=== PATIENT | female | born 1990 | race Caucasian/White ===

== ENCOUNTER 2020-11-20 13:54 | Emergency (ER) | payer SELFPAY ==
[2020-11-20 14:00] VITALS: BP 143/86; PULSE 108; RESP 20; TEMP 37.6; O2SAT 96; BMI 51.7
--- NOTE | 2020-11-20 14:25 | HMH.EDUTC ---
[facility] Disposition Clinical Impression: Multiple complaints Disposition: Home, Self-Care Condition on Discharge: Good Instructions: Hernias: Causes and Treatment Options, DI for Anxiety -- Adult Additional Instructions: Watch for protrusion of area on your abdomen if you noticed lump or hernia like area in your abdomen follow up with your Family Doctor You was given list of accepting Providers, call the clinics and check to see which one accepts your insurance and is accepting new patients Follow up with Aysha Ford Call office and make appointment she had me start you on a medication to help with your anxiety Return if needed Straight to ER if any life threatening symptoms Prescriptions: Sertraline HCl [Zoloft 50mg tablet] 50 mg PO DAILY 30 Days #30 tab Transmission Status: Received by [employer] #[id number] Referrals: Provider,Referral, MD [Primary Care Provider] - As needed Aysha Ford, INCINERATOR ATTENDANT [Nurse Practitioner] - Time of Disposition: 14:54 Medical Decision Making - Nima Inquiry Pt receiving controlled substance: No Nima was queried for this patient: No Vital Signs: 11/20/20 14:00 11/20/20 14:45 11/20/20 14:54 Temperature 99.7 F H 98.3 F 98.3 F Temperature Source Temporal Artery Scan Temporal Artery Scan Pulse Rate 89 Pulse Rate [Left Brachial] 108 H 89 Respiratory Rate 20 22 22 Blood Pressure 152/81 H Blood Pressure [Left Arm] 143/86 H 152/81 H Blood Pressure Mean [Left Arm] 105 104 Blood Pressure Source [Left Arm] Automatic Cuff Automatic Cuff Blood Pressure Position [Left Arm] Sitting Sitting 02 Sat by Pulse Oximetry 96 97 Oxygen Delivery Method Room Air Room Air - Physician Consults Physician Consulted: Aysha Ford Time: 14:50 Reason -: Other (Behavioral Health) Comment/Response: Spoke with Aysha Ford Behavioral [facility] and she advised to go ahead and start patient on Zoloft and have her call for appointment and she will see her in the office and change or adjust medicaiton as needed Medical Decision Narrative: Patient states that it was recommended that she come here to get established with PCP and get referrals to where she needed to go. Discussed with patient that [facility] could not be PCP and was given application for insurance and the need for her to establish a PCP to follow up and further testing if needed, At this time do not feel palpable mass or hernia however just because none is felt at this time it could have retracted and recommended follow up for further testing and evaluation and patient agreed Discussed that we could transfer her to the ED for CT or do ultrasound to see if we see anything and patient declined at this time. Patient states that she did not have PCP and wanted a list of accepting doctors Patient also given card for Aysha Ford for evaluation and treatment of her anxiety disorder Spoke with Aysha Ford and she had me start patient on Zoloft 50mg daily and have her call the office for appointment [facility] HPI - General Stated complaint: poss hernia Time Seen by Provider: 11/20/20 14:32 Mode of Arrival: Ambulatory Source of Information: Patient Limitations: No Limitations Description of Symptoms (Recalled from Triage Doc. by RN): PATIENT C/O DISCOMFORT AROUND UMBILICAL AREA X 2 WEEKS, POSSIBLE HERNIA HEENT Symptoms (Recalled from RN notes): No Resp Symptoms (Recalled from RN notes): No Skin Symptoms (Recalled from RN notes): No MS Symptoms (Recalled from RN notes): No Functional Status (Recalled from RN notes): WNL - History of Present Illness Provider Complaint: Patient states that she gets anxious when she comes to the doctor States that about two weeks ago she was lifting something and felt a burning sensation around her navel area States that it stopped but she felt of it felt like she had a spot there like a seperation in the muscle or something and someone said it may be a hernia States that she has not had anything protruding through it a
[2020-11-20 14:45] VITALS: BP 152/81; PULSE 89; RESP 22; TEMP 36.8; O2SAT 97
[2020-11-20 14:54] VITALS: BP 152/81; PULSE 89; RESP 22; TEMP 36.8; O2SAT 97
== END 2020-11-20 14:58 | disposition home or self-care (01) ==
PROVIDERS: Emergency Provider Nurse Practitioner
DX: R10.33 Periumbilical pain (principal); F41.9 Anxiety disorder, unspecified; Z79.899 Other long term (current) drug therapy
CPT/HCPCS: 99202; G0463

== ENCOUNTER → 2020-12-25 12:58 | Outpatient (CLI) | payer OTHER, SELFPAY ==
[2020-12-25 13:17] LABS: Basophils # 0.1 K/mm3 (0-0.2); Basophils % 0.7 % (0.1-2.0); Eosinophils # 0.3 K/mm3 (0.0-0.4); Hemoglobin 14.5 g/dL (12.2-16.2); Lymphocytes # 3.4 K/mm3 (0.7-4.5); Mean Corpuscular HGB Conc 33.8 g/dL (31.8-35.4); Mean Corpuscular Hemoglobin 29.7 pg (27.0-31.2); Mean Corpuscular Volume 88.1 fl (81-99); Monocytes # 0.4 K/mm3 (0.1-1.0); Monocytes % 3.4 % (1.7-9.3); Neutrophils # 7.2 K/mm3 (1.8-7.8); Platelet Count 291 K/mm3 (142-424); Red Blood Count 4.88 M/mm3 (4.20-5.40); Red Cell Distribution Width 13.9 % (11.5-17.5); White Blood Count 11.4 K/mm3 (4.8-10.8)
[2020-12-25 13:53] LABS: Alanine Aminotransferase 20 U/L (12-78); Albumin Level 4.1 g/dl (3.5-5.0); Albumin/Globulin Ratio 1.6 (1.1-1.8); Alkaline Phosphatase 87 U/L (38-126); Anion Gap 11.1 mEq/L (5-15); Aspartate Amino Transferase 22 U/L (14-36); Bilirubin,Total 0.5 mg/dl (0.2-1.3); Blood Urea Nitrogen 5 mg/dl (7-17); Calcium 8.8 mg/dl (8.4-10.2); Carbon Dioxide 29 mmol/L (22.0-30.0); Chloride 102 mmol/L (98-107); Chol/HDL Ratio 5.7 (1-3.5); Cholesterol 176 mg/dl (140-200); Estimated Glomerular Filt Rate 145 ml/min (>60); GFR (African American) 175 ML/MIN (>60); Globulin 2.6 g/dL (1.3-3.2); Glucose 101 mg/dl (74-100); HDL Cholesterol 31 mg/dl (40-60); Potassium 4.1 mmoL/L (3.5-5.1); Sodium 138 mmol/L (136-145); Total Protein,Serum 6.7 g/dl (6.3-8.2); Triglycerides 187 mg/dl (30-150); VLDL Cholesterol 37 mg/dL (0-40)
[2020-12-25 14:04] LABS: Direct LDL Cholesterol 111.18 mg/dL (100-129)
[2020-12-25 14:24] LABS: Thyroid Stimulating Hormone 1.62 uIU/mL (0.465-4.68)
== END ==
PROVIDERS: Visit Provider Family Medicine
DX: F41.8 Other specified anxiety disorders (principal); Z68.43 Body mass index [BMI] 50.0-59.9, adult
CPT/HCPCS: 36415; 80053; 80061; 84443; 85025

== ENCOUNTER 2023-12-05 15:33 | Outpatient (CLI) | payer OTHER, SELFPAY ==
--- NOTE | 2023-12-05 15:40 | XR_ITS ---
FINAL REPORT CLINICAL HISTORY: LT SIDE LOW BACK PAIN FINDINGS: 5 views of the lumbar spine were obtained. There is no evidence of fracture or dislocation. The vertebral alignment is normal. Disc spaces are preserved. No paraspinous soft tissue abnormalities identified. IMPRESSION: No acute bony abnormality. Reviewed, Interpreted and Dictated by Edgar Gusman III, MD Transcribed by Sayra Lopez Authenticated and [facility]
== END 2023-12-05 23:59 | disposition home or self-care (01) ==
LOC: RAD 15:35
PROVIDERS: PCP Family Medicine; Visit Provider Family Medicine
DX: M54.42 Lumbago with sciatica, left side (principal)
CPT/HCPCS: 72110

== ENCOUNTER 2023-12-12 15:02 | Outpatient (CLI) | payer OTHER, SELFPAY ==
--- NOTE | 2023-12-12 15:07 | MM_ITS ---
PROCEDURE INFORMATION: Exam: US Left Breast, Complete MG Left Diagnostic Breast Tomosynthesis Exam date and time: 12/12/2023 3:04 PM Age: 33 years old Clinical indication: Left breast pain TECHNIQUE: Imaging protocol: Complete ultrasound of all four quadrants of the left breast and the retroareolar regions, including ultrasound of the axilla when performed. Left Diagnostic tomosynthesis and 2D mammography including computer-aided detection (CAD) when performed. Unilateral or bilateral exam. COMPARISON: No relevant prior studies available. FINDINGS: MAMMOGRAPHY: Breast composition: There are scattered areas of fibroglandular density. Breast mammogram findings: There is a 1.3 cm circumscribed lobulated mass in the 12 o'clock left breast approximately 13 cm from the left nipple. No associated architectural distortion or suspicious calcifications Otherwise, no mass, distortion or suspicious calcifications are present throughout the left breast No axillary adenopathy ULTRASOUND: Breast ultrasound findings: 4 quadrant and retroareolar left breast ultrasound and left axilla ultrasound Only normal glandular structures are present in the regions assessed No suspicious solid or cystic mass is present. No benign-appearing solid or cystic mass is present. No architectural distortion or shadowing is present. No axillary adenopathy is present. IMPRESSION: Repeat targeted ultrasound is recommended to further characterize a 1.3 cm lobulated mass along the 12 o'clock left breast 13 cm from the nipple. ASSESSMENT: BI-RADS 0, incomplete, needs additional imaging evaluation
[2023-12-12 17:59] LABS: Chloride 105 mmol/L (98-107); Potassium 4.4 mmoL/L (3.5-5.1); Sodium 137 mmol/L (136-145)
[2023-12-12 18:02] LABS: Alanine Aminotransferase 17 U/L (12-78); Albumin/Globulin Ratio 1.5 (1.1-1.8); Alkaline Phosphatase 86 U/L (38-126); Anion Gap 10.4 mEq/L (5-15); Aspartate Amino Transferase 23 U/L (14-36); Bilirubin,Total 0.2 mg/dl (0.2-1.3); Blood Urea Nitrogen 12 mg/dl (7-17); Carbon Dioxide 26 mmol/L (22.0-30.0); Cholesterol 168 mg/dl (140-200); Estimated Glomerular Filt Rate 115 ml/min (>60); GFR (African American) 139 ML/MIN (>60); Globulin 2.7 g/dL (1.3-3.2); Total Protein,Serum 6.7 g/dl (6.3-8.2); Triglycerides 259 mg/dl (30-150); VLDL Cholesterol 52 mg/dL (0-40)
[2023-12-12 18:03] LABS: Calcium 9.3 mg/dl (8.4-10.2); Chol/HDL Ratio 5.6 (1-3.5); Glucose 96 mg/dl (74-100); HDL Cholesterol 30 mg/dl (40-60)
[2023-12-12 18:16] LABS: Direct LDL Cholesterol 95.38 mg/dL (100-129)
[2023-12-12 18:17] LABS: Thyroid Stimulating Hormone 1.72 uIU/mL (0.465-4.68)
== END 2023-12-12 23:59 | disposition home or self-care (01) ==
PROVIDERS: PCP Family Medicine; Visit Provider Family Medicine
DX: N64.4 Mastodynia (principal); E66.01 Morbid (severe) obesity due to excess calories; Z68.43 Body mass index [BMI] 50.0-59.9, adult
CPT/HCPCS: 36415; 76641; 77061; 77065; 80053; 80061; 83036; 84443; G0279

== ENCOUNTER 2023-12-15 12:47 | Outpatient (CLI) | payer OTHER, SELFPAY ==
[2023-12-15 14:15] VITALS: BMI 52.9
== END 2023-12-15 23:59 | disposition home or self-care (01) ==
LOC: DIETICIAN 12:47
PROVIDERS: PCP Nurse Practitioner Family; Visit Provider Family Medicine
DX: E66.01 Morbid (severe) obesity due to excess calories (principal); Z68.43 Body mass index [BMI] 50.0-59.9, adult
CPT/HCPCS: 97802

== ENCOUNTER 2023-12-30 14:46 | Outpatient (CLI) | payer OTHER, SELFPAY ==
--- NOTE | 2023-12-30 14:46 | MR_ITS ---
FINAL REPORT TECHNIQUE: Multiplanar MR without contrast CLINICAL HISTORY: LBP with left sciatica FINDINGS: Sagittal images show normal vertebral height. Alignment is normal. Marrow signal pattern is unremarkable. L1-2: Unremarkable L2-3: Unremarkable L3-4: Unremarkable L4-5: Unremarkable L5-S1: Unremarkable IMPRESSION: Unremarkable exam Reviewed, Interpreted and Dictated by Katy Ingram MD Transcribed by Jojo Carter Authenticated and [facility]
== END 2023-12-30 23:59 | disposition home or self-care (01) ==
LOC: RAD 14:46
PROVIDERS: PCP Nurse Practitioner Family; Visit Provider Nurse Practitioner Family
DX: M54.42 Lumbago with sciatica, left side (principal)
CPT/HCPCS: 72148

== ENCOUNTER 2024-02-15 13:08 | Outpatient (CLI) | payer SELFPAY ==
[2024-02-15 14:53] LABS: HCG,Quantitative 38880 mIU/ml (0-5.42)
[2024-02-17 09:10] LABS: Progesterone 14.1 ng/mL (.)
== END 2024-02-15 23:59 | disposition home or self-care (01) ==
LOC: LAB 13:09
PROVIDERS: PCP Nurse Practitioner Family; Visit Provider Obstetrics & Gynecology
DX: N92.6 Irregular menstruation, unspecified (principal)
CPT/HCPCS: 36415; 84144; 84702

== ENCOUNTER 2024-04-18 11:40 | Outpatient (CLI) | payer SELFPAY | END 2024-04-18 23:59 | disposition home or self-care (01) | LOC: LAB.DROPOF 04-19 10:09 | PROVIDERS: PCP Obstetrics & Gynecology; Visit Provider Obstetrics & Gynecology | DX: Z34.90 Encounter for supervision of normal pregnancy, unspecified, unspecified trimester (principal) | CPT/HCPCS: 87086 ==

== ENCOUNTER 2024-05-18 13:21 | Emergency (ER) | payer OTHER, SELFPAY ==
[2024-05-18 14:15] VITALS: BP 136/78; PULSE 84; RESP 19; TEMP 36.9; O2SAT 96; BMI 59.3
--- NOTE | 2024-05-18 14:15 | ED_ITS ---
Discharge Plan Disposition Patient Disposition: Home, Self-Care Condition: Good Prescriptions Prescriptions: New azithromycin [Zithromax] 250 mg tablet 250 mg PO UD DOSE PK Qty: 6 0RF Rx Instructions: Take two (2) tablets today, then one (1) tablet days #2 thru #5 No Action Classic 28 mg iron- 800 mcg tablet 1 tab PO DAILY Referrals Follow up/Referrals: Anette Norman APRN [Primary Care Provider] - See instructions Activity Restrictions/Add. Instructions Additional Instructions/Restrictions: Drink plenty of fluids. Take tylenol for pain or fever. Take the medications as directed. Follow up with your regular doctor. Follow up with your merchandise associate physician. GO TO THE ER FOR ANY WORSENING SYMPTOMS Clinical Impressions Clinical Impression: Sinusitis, Stand Alone Forms Stand Alone Forms: Work/School Release Instructions Patient Instructions: DI for Sinusitis Print Language Print Language: Bengali Discharge ED Provider: Kike Henderson [facility] [place] General Stated complaint: sore throat, sinus pressure Time Seen by Provider: 05/18/24 14:15 Related Data Home Medications ?Medication ?Instructions ?Recorded ?Confirmed vits no.126-ferrous fum 1 tab PO DAILY 02/22/24 05/18/24 28 mg iron-folic acid 800 mcg tablet (Classic ) Previous Rx's ?Medication ?Instructions ?Recorded azithromycin 250 mg tablet 250 mg PO UD DOSE PK #6 tabs 05/18/24 (Zithromax) Allergies Allergy/AdvReac Type Severity Reaction Status Date / Time No Known Allergies Allergy Verified 04/18/24 11:10 [facility] Disclaimer: The information contained in this section may have been updated after the patient was seen, as this information can be updated by other users. Medical History (Updated 05/18/24 @ 14:50 by Kike Henderson APRN) Tobacco use affecting , antepartum Maternal obesity affecting , antepartum History of anxiety Surgical History Hx laparoscopic cholecystectomy Family History Other Cancer Social History Smoking Status: Current every day smoker alcohol intake: never substance use type: former substance user current occupational status: employed and other Travel in the last 8 weeks: None number of children: 0 ROS Obtained: Yes All systems reviewed & no additional complaints except as documented Constitutional Constitutional: Reports poor appetite Eyes Eyes: Reports system reviewed and no additional complaints, except as documented ENT Ears, Nose, Mouth, and Throat: Reports as per HPI Cardiovascular Cardiovascular: Reports system reviewed and no additional complaints, except as documented and Denies chest pain Respiratory Respiratory: Denies shortness of breath, Denies chest congestion, Reports cough, Denies stridor and Denies wheezing Gastrointestinal Gastrointestingal: Reports system reviewed and no additional complaints, except as documented; Denies abdominal pain, diarrhea or vomiting Musculoskeletal Musculoskeletal: Reports system reviewed and no additional complaints, except as documented and Denies arthralgias Integumentary/Breasts Skin/Breast: Reports system reviewed and no additional complaints, except as documented and Denies rash Neurologic Neurologic: Denies paresthesias Allergic/Immunologic Allergic/Immunologic: Denies wheezing Physical Exam General General appearance: alert and in no apparent distress Eye Eye exam: Present normal appearance, PERRL and EOMI ENT ENT exam: Present mucous membranes moist and normal external ear exam Expanded ENT Exam External ear exam: Present normal external inspection TM/Canal exam: Bilateral TM: erythema and bulging Nose exam: Absent sinus tenderness Nasal speculum exam: Bilateral: normal Mouth exam: Present normal external inspection; Absent drooling Teeth exam: Present normal inspection Throat exam: Present tonsillar erythema and tonsillomegaly Neck Neck exam: Present normal inspection, full ROM and trachea midline; Absent tenderness, lymphadenopathy or thyromegaly Chest Chest inspection: Present normal inspection and symmetric chest wall rise; Absent tenderness or rash Respiratory Respiratory exam: Present normal lung sounds bilaterally; Absent respiratory distress, wheezes, stridor or accessory muscle use Cardiovascular Cardiovascular exam: Present regular rate, normal rhythm and normal heart sounds Abdominal Exam Abdominal exam: Present soft; Absent distention, tenderness, guarding, rebound or rigidity Extremities Exam Extremities exam: Present normal inspection, full ROM and normal capillary refill; Absent tenderness or calf tenderness Back Exam Back exam: Present normal inspection and full ROM; Absent tenderness Neurological Exam Neurological exam: Present alert and oriented X3 Psychiatric Psychiatric exam: Present normal affect and normal mood Skin Skin exam: Present warm, dry, intact and normal color Lymphatic Lymphatic Findings: no adenopathy Medical Decision Making Medical Records Medical records reviewed: No I reviewed the patient's medical records. Screening: Per USPSTF and CDC recommendations, given the prevalence of disease in our region, it is our hospital?s policy to screen for HIV and viral Hepatitis for all patients aged 18 and over and those with ongoing risk factors. Nima Inquiry Pt receiving controlled substance: No Lab Data Lab results reviewed: Yes I reviewed the patient's lab results. Orders (Tests/Meds): ORDERS Category Date Time Status Covid-19 Nasal PCR ([facility]) Routine Lab 05/18/24 14:10 Ordered
[2024-05-18 14:52] VITALS: BP 136/78; PULSE 84; RESP 19; TEMP 36.9; O2SAT 96
== END 2024-05-18 14:54 | disposition home or self-care (01) ==
PROVIDERS: Emergency Provider Nurse Practitioner Family; PCP Nurse Practitioner Family
DX: O99.519 Diseases of the respiratory system complicating pregnancy, unspecified trimester (principal); J01.90 Acute sinusitis, unspecified; Z3A.00 Weeks of gestation of pregnancy not specified
CPT/HCPCS: 87635; 99213; G0381

== ENCOUNTER 2024-05-24 09:03 | Outpatient (CLI) | payer OTHER, SELFPAY ==
--- NOTE | 2024-05-24 09:09 | US_ITS ---
PROCEDURE: US OB /MATERNAL DETAIL CLINICAL INDICATION: 20 wk + Anatomy Scan COMPARISON: No exams were available for comparison FINDINGS: Transabdominal sonographic images of the pelvis were obtained. From her established due date she is 21 weeks 4 days. Single viable intrauterine gestation. Cephalic position. Placenta: Posteriorplacenta grade 1 . There is an average amount of fluid. The cervix appears satisfactory. Closed and measuring 6.4 cm in length. Complete survey performed and was unremarkable on the submitted images as in PACS. No discrete anomalies identified on survey imaging by technologist. Active fetus. Three-vessel cord with satisfactory umbilical cord insertion. 4- chamber heart noted. Situs, aortic arch, LVOT, RVOT, three-vessel view appear normal. Survey of brain & ventricles Unremarkable. Cerebellum, thalamus, choroid plexus, cisterna magna appear normal. Face and neck survey unremarkable. Profile, nasion, lips and nose appeared normal. Diaphragm and chest views unremarkable. Abdomen: Both kidneys noted and there is bilateral mild renal pelvis dilation.. Stomach and bladder noted and satisfactory. There is bilateral renal pelvis dilation measuring 4.8 mm and 6.2 mm. Spine: Survey of the spine satisfactory with no anomalies identified nor imaged. Cervical, thoracic, lower spine appear normal. Both arms and legs noted. Amniotic Fluid: Adequate. MVP 5.23 cm Measurements: Average ultrasound age 21weeks 5days. Estimated due date by ultrasound age 0309/29/2024. Estimated weight 431g BPD = 21weeks 6days HC = 21weeks 5days AC = 21weeks 6days FL = 21weeks 2days Growth Percentile= 41 Heart Rate = 152bpm Cerebellum = 21weeks 1day Humerus = 22weeks HC/AC is 1.16 FL/BPD is 0.68 FL/AC is 0.21 IMPRESSION: 1. Viable fetus in the cephalic presentation with a posterior placenta grade 1. 2. The fluid is within normal limits MVP 5.23 cm. 3. Anatomical scan appears normal. Difficult exam secondary to maternal obesity. 4. There is bilateral mild renal pelvis dilation measuring 4.8 mm and 6.2 mm. 5. Heart and spine views appear normal but were incomplete due to position. Suggest repeat scan at 24 weeks to look at the anatomy. Suggest repeat scan at 28 weeks to look at renal pelvis. 6. biometry is consistent with the dates. Dictated by: Ramy Heredia MD 05/24/2024 11:49 Ramy Heredia MD in [place] 05/24/2024 11:49
[2024-05-24 11:26] LABS: Basophils # 0.1 K/mm3 (0-0.2); Basophils % 0.6 % (0.1-2.0); Eosinophils # 0.1 K/mm3 (0.0-0.4); Eosinophils % 1.1 % (0.1-12.0); Hematocrit 38.2 % (37.0-47.0); Hemoglobin 13.5 g/dL (12.2-16.2); Lymphocytes # 2.7 K/mm3 (0.7-4.5); Lymphocytes % 26.3 % (10-50); Mean Corpuscular HGB Conc 35.4 g/dL (31.8-35.4); Mean Corpuscular Hemoglobin 31.8 pg (27.0-31.2); Mean Corpuscular Volume 89.9 fl (81-99); Mean Platelet Volume 7.7 fl (7.4-10.4); Monocytes # 0.4 K/mm3 (0.1-1.0); Monocytes % 3.6 % (1.7-9.3); Neutrophils % 68.5 % (37.0-80.0); Platelet Count 250 K/mm3 (142-424); Red Blood Count 4.25 M/mm3 (4.20-5.40); Red Cell Distribution Width 13.8 % (11.5-17.5); White Blood Count 10.3 K/mm3 (4.8-10.8)
[2024-05-24 12:12] LABS: HIV (1&2) Antibody Rapid NONREACTIVE (NONREACTIVE)
[2024-05-25 05:24] LABS: HCV Ab Non Reactive (Non Reactive); Hepatitis B Surface Antigen Negative (Negative)
[2024-05-25 11:53] LABS: Rapid Plasma Reagin Ab Titer Non Reactive titer (NonRea<1:1)
== END 2024-05-24 23:59 | disposition home or self-care (01) ==
LOC: RAD 09:05
PROVIDERS: PCP Obstetrics & Gynecology; Visit Provider Obstetrics & Gynecology
DX: Z36.3 Encounter for antenatal screening for malformations (principal); O99.332 Smoking (tobacco) complicating pregnancy, second trimester; O99.210 Obesity complicating pregnancy, unspecified trimester; Z3A.21 21 weeks gestation of pregnancy; Z86.59 Personal history of other mental and behavioral disorders
CPT/HCPCS: 36415; 76811; 85025; 86593; 86762; 86803; 86850; 87340; 87389

== ENCOUNTER 2024-07-19 14:42 | Outpatient (CLI) | payer OTHER, SELFPAY ==
--- NOTE | 2024-07-19 14:45 | US_ITS ---
PROCEDURE: US OB >= 14 WEEKS FETUS CLINICAL INDICATION: renal pelvis dilation COMPARISON: US US OB /MATERNAL DETAIL from 05/24/2024 FINDINGS: Transabdominal sonographic images of the pelvis were obtained. The following parameters are obtained: From her established due date she is 29weeks 5days Viable fetus in the cephalic presentation with a posterior placenta grade 1. The cervix measures 5.31 cm heart rate: 150bpm bpm. Amniotic fluid index: 13.37cm, MVP 4.92 cm No obvious anomalies evident. profile seen, nose, lips, stomach, bladder, kidneys, three-vessel cord, four chamber heart appear normal. heart: LVOT, RVOT, three-vessel view, four-chamber heart appear normal. Today there is mild renal pelvis dilation measuring 3.9 mm and 3.6 mm. IMPRESSION: 1. Viable fetus in the cephalic presentation with a posterior placenta grade 1. 2. The fluid is within normal limits with an amniotic fluid index 13.37 cm, MVP 4.92 cm. 3. Limited anatomical scan appears normal. 4. Cardiac views appear normal today. 5. spine is still not visualized completely due to position. 6. There is minimal bilateral renal pelvis dilation today. Dictated by: Ramy Heredia MD 07/19/2024 16:01 Ramy Heredia MD in [facility] 07/19/2024 16:01
[2024-07-19 16:37] LABS: Basophils % 0.3 % (0.1-2.0); Eosinophils # 0.1 K/mm3 (0.0-0.4); Eosinophils % 1.4 % (0.1-12.0); Hematocrit 32.5 % (37.0-47.0); Hemoglobin 11.2 g/dL (12.2-16.2); Lymphocytes # 2.4 K/mm3 (0.7-4.5); Lymphocytes % 23.3 % (10-50); Mean Corpuscular HGB Conc 34.5 g/dL (31.8-35.4); Mean Corpuscular Hemoglobin 31.4 pg (27.0-31.2); Mean Platelet Volume 9.9 fl (7.4-10.4); Monocytes # 0.5 K/mm3 (0.1-1.0); Neutrophils # 7.1 K/mm3 (1.8-7.8); Neutrophils % 69.6 % (37.0-80.0); Platelet Count 210 K/mm3 (142-424); Red Blood Count 3.57 M/mm3 (4.20-5.40); Red Cell Distribution Width 12.6 % (11.5-17.5); White Blood Count 10.2 K/mm3 (4.8-10.8)
[2024-07-19 17:12] LABS: Glucose 1 Hour 149 mg/dL (74-100)
[2024-07-20 17:54] LABS: RPR W/RFX Titers Nonreactive (Nonreactive)
== END 2024-07-19 23:59 | disposition home or self-care (01) ==
LOC: RAD 14:43
PROVIDERS: PCP Nurse Practitioner Family; Visit Provider Obstetrics & Gynecology
DX: Z34.90 Encounter for supervision of normal pregnancy, unspecified, unspecified trimester (principal); O99.210 Obesity complicating pregnancy, unspecified trimester
CPT/HCPCS: 36415; 76805; 82947; 85025; 86592

== ENCOUNTER 2024-07-26 15:55 | Outpatient (CLI) | payer OTHER, SELFPAY ==
[2024-07-26 16:16] LABS: Basophils # 0.1 K/mm3 (0-0.2); Basophils % 0.5 % (0.1-2.0); Eosinophils # 0.1 K/mm3 (0.0-0.4); Eosinophils % 1.2 % (0.1-12.0); Hematocrit 33.7 % (37.0-47.0); Hemoglobin 11.5 g/dL (12.2-16.2); Lymphocytes # 2.6 K/mm3 (0.7-4.5); Lymphocytes % 24.5 % (10-50); Mean Corpuscular HGB Conc 34.1 g/dL (31.8-35.4); Mean Corpuscular Hemoglobin 31.3 pg (27.0-31.2); Mean Corpuscular Volume 91.6 fl (81-99); Mean Platelet Volume 10.2 fl (7.4-10.4); Monocytes # 0.7 K/mm3 (0.1-1.0); Monocytes % 6.6 % (1.7-9.3); Platelet Count 211 K/mm3 (142-424); Red Blood Count 3.68 M/mm3 (4.20-5.40); Red Cell Distribution Width 12.9 % (11.5-17.5); White Blood Count 10.4 K/mm3 (4.8-10.8)
[2024-07-26 17:25] LABS: Alanine Aminotransferase 15 U/L (12-78); Aspartate Amino Transferase 20 U/L (14-36); Blood Urea Nitrogen 5 mg/dl (7-17); Estimated Glomerular Filt Rate 141 ml/min (>60); GFR (African American) 171 ML/MIN (>60); Sodium 135 mmol/L (136-145); Uric Acid 2.3 mg/dl (2.5-6.2)
[2024-07-26 17:50] LABS: Albumin Level 3.3 g/dl (3.5-5.0); Albumin/Globulin Ratio 1.3 (1.1-1.8); Alkaline Phosphatase 100 U/L (38-126); Anion Gap 13.2 mEq/L (5-15); Calcium 8.6 mg/dl (8.4-10.2); Carbon Dioxide 22 mmol/L (22.0-30.0); Chloride 104 mmol/L (98-107); Globulin 2.5 g/dL (1.3-3.2); Glucose 85 mg/dl (74-100); Potassium 4.2 mmoL/L (3.5-5.1); Total Protein,Serum 5.8 g/dl (6.3-8.2)
[2024-07-26 17:53] LABS: Bilirubin,Total < 0.1 mg/dl (0.2-1.3)
== END 2024-07-26 23:59 | disposition home or self-care (01) ==
LOC: LAB 15:56
PROVIDERS: PCP Nurse Practitioner Family; Visit Provider Obstetrics & Gynecology
DX: O99.210 Obesity complicating pregnancy, unspecified trimester (principal)
CPT/HCPCS: 36415; 80053; 84550; 85025

== ENCOUNTER 2024-07-28 08:48 | Outpatient (CLI) | payer OTHER, SELFPAY ==
[2024-07-28 09:11] LABS: Glucose,Fasting 97 mg/dl (74-100)
[2024-07-28 09:50] LABS: Creatinine,Urine Random 49 mg/dL (Not Estab.)
[2024-07-28 10:33] LABS: Glucose 1 Hour 179 mg/dL (74-100)
[2024-07-28 12:05] LABS: Glucose 2 Hour 161 mg/dL (74-100)
[2024-07-28 13:51] LABS: Glucose 3 Hour 63 mg/dL (74-100)
== END 2024-07-28 23:59 | disposition home or self-care (01) ==
LOC: LAB 08:50
PROVIDERS: PCP Nurse Practitioner Family; Visit Provider Obstetrics & Gynecology
DX: O99.210 Obesity complicating pregnancy, unspecified trimester (principal); O99.340 Other mental disorders complicating pregnancy, unspecified trimester; F41.9 Anxiety disorder, unspecified
CPT/HCPCS: 36415; 82570; 82951; 84156

== ENCOUNTER 2024-08-10 15:14 | Outpatient (CLI) | payer OTHER, SELFPAY ==
--- NOTE | 2024-08-10 15:15 | US_ITS ---
PROCEDURE: US OB BIOPHYSICAL PROFILE CLINICAL INDICATION: Gestational Hypertension COMPARISON: US US OB /MATERNAL DETAIL from 05/24/2024 US US OB >= 14 WEEKS FETUS from 07/19/2024 FINDINGS: Transabdominal sonographic images of the uterus were obtained. From her established due date she is 32weeks 6days. The following parameters are obtained: Viable Fetus in the cephalic presentation with a posterior placenta grade 2. Average ultrasound age is 34weeks 1day Estimated weight 2,260g, 5 lb 0 oz Cervix measures 4.94 cm. Measurements: heart Rate = 133bpm BPD = 34weeks 1day, 77 percentile HC = 35weeks 3days, 79 percentile AC = 34weeks 0 days, 81 percentile FL = 32weeks 4days, 30 percentile HC/AC is 1.05 FL/BPD is 0.74 FL/AC is 0.21 68 percentile Amniotic fluid index: 11.27cm, MVP 4.65 cm. Qualitative AFV:2 Breathing movements: 2 Gross Body Movements: 2 Tone: 2 Biophysical profile score: 8 No obvious anomalies evident.Kidneys, bladder, four-chamber heart, three-vessel cord appear normal. There is mild bilateral renal pelvis dilation measuring 5.3 mm and 4.7 mm. Considered normal at this gestational age. IMPRESSION: 1. Viable fetus in the cephalic presentation with a posterior placenta grade 2. 2. The fluid is within normal limits with an amniotic fluid index 11.27 cm, MVP 4.65 cm. 3. Biophysical profile is 8/8 with good breathing movement and movement seen. 4. There has been good interval growth with the fetus currently 68th percentile. 5. Difficult exam secondary to patient's body habitus. 6. Limited anatomical scan appears normal. 7. There continues to be mild bilateral renal pelvis dilation, maximum 5.3 mm considered normal at this gestational age. (Normal less than 7 mm ) Dictated by: Ramy Heredia MD 08/11/2024 10:26 Ramy Heredia MD in [place] 08/11/2024 10:26
== END 2024-08-10 23:59 | disposition home or self-care (01) ==
LOC: RAD 15:15
PROVIDERS: PCP Nurse Practitioner Family; Visit Provider Obstetrics & Gynecology
DX: O13.3 Gestational [pregnancy-induced] hypertension without significant proteinuria, third trimester (principal); O99.343 Other mental disorders complicating pregnancy, third trimester; F41.9 Anxiety disorder, unspecified; O99.333 Smoking (tobacco) complicating pregnancy, third trimester; O99.213 Obesity complicating pregnancy, third trimester; Z3A.32 32 weeks gestation of pregnancy
CPT/HCPCS: 76816; 76819

== ENCOUNTER 2024-08-28 15:13 | Outpatient (CLI) | payer BC, OTHER, SELFPAY ==
--- NOTE | 2024-08-28 15:17 | US_ITS ---
PROCEDURE: US OB BIOPHYSICAL PROFILE CLINICAL INDICATION: BPP w/ KOTA COMPARISON: US US OB /MATERNAL DETAIL from 05/24/2024 US US OB >= 14 WEEKS FETUS from 07/19/2024 US US OB BIOPHYSICAL PROFILE from 08/10/2024 FINDINGS: Transabdominal sonographic images of the uterus were obtained. From her established due date she is 35weeks 3days. The following parameters are obtained: Viable Fetus in the cephalic presentation with a posterior placenta grade 2. The cervix measures 4.1 cm. Measurements: heart Rate = 140bpm Amniotic fluid index: 9.93cm, MVP 3.43 cm Qualitative AFV:2 Breathing movements: 2 Gross Body Movements: 2 Tone: 2 Biophysical profile score: 8 No obvious anomalies evident.Kidneys, stomach, bladder, four-chamber heart, three-vessel cord appear normal. There is mild bilateral renal pelvis dilation measuring 5.7 mm and 5.1 mm. Considered normal at this time . IMPRESSION: 1. Viable fetus in the cephalic presentation with a posterior placenta grade 2. 2. The fluid is within normal limits with an amniotic fluid index 9.93 cm, MVP 3.43 cm. 3. Biophysical profile is 8/8 with good breathing movement and movement seen. 4. Limited anatomical scan appears normal. 5. There continues to be mild bilateral renal pelvis dilation less than 7 mm. Considered normal. Dictated by: Ramy Heredia MD 08/28/2024 16:59 Ramy Heredia MD in [facility] 08/28/2024 16:59
== END 2024-08-28 23:59 | disposition home or self-care (01) ==
LOC: RAD 15:14
PROVIDERS: PCP Nurse Practitioner Family; Visit Provider Obstetrics & Gynecology
DX: O24.419 Gestational diabetes mellitus in pregnancy, unspecified control (principal); O13.3 Gestational [pregnancy-induced] hypertension without significant proteinuria, third trimester; O99.213 Obesity complicating pregnancy, third trimester; Z3A.35 35 weeks gestation of pregnancy
CPT/HCPCS: 76819

== ENCOUNTER 2024-09-04 15:09 | Outpatient (CLI) | payer OTHER, SELFPAY ==
--- NOTE | 2024-09-04 15:13 | US_ITS ---
PROCEDURE: US OB BIOPHYSICAL PROFILE CLINICAL INDICATION: BPP w/ KOTA COMPARISON: US US OB /MATERNAL DETAIL from 05/24/2024 US US OB BIOPHYSICAL PROFILE from 08/10/2024 US US OB BIOPHYSICAL PROFILE from 08/28/2024 FINDINGS: Transabdominal sonographic images of the uterus were obtained. From her established due date she is 36weeks 2days. The following parameters are obtained: Viable Fetus in the cephalic presentation with a posterior placenta grade 2. Cervix measures 4.44 cm. Measurements: heart Rate = 136bpm Amniotic fluid index: 15.76cm, MVP 5.38 cm. Qualitative AFV:2 Breathing movements: 2 Gross Body Movements: 2 Tone: 2 Biophysical profile score: 8 No obvious anomalies evident.Kidneys, profile, stomach, bladder, four-chamber heart, three-vessel cord appear normal. IMPRESSION: 1. Viable fetus in the cephalic presentation with a posterior placenta grade 2. 2. The fluid is within normal limits with an amniotic fluid index 15.76 cm, MVP 5.38 cm. 3. Biophysical profile is 8/8 with good breathing movement and movement seen. 4. Limited anatomical scan appears normal. Dictated by: Ramy Heredia MD 09/04/2024 16:37 Ramy Heredia MD in [place] 09/04/2024 16:37
== END 2024-09-04 23:59 | disposition home or self-care (01) ==
LOC: RAD 15:10
PROVIDERS: PCP Nurse Practitioner Family; Visit Provider Obstetrics & Gynecology
DX: O24.419 Gestational diabetes mellitus in pregnancy, unspecified control (principal); O13.3 Gestational [pregnancy-induced] hypertension without significant proteinuria, third trimester; O99.213 Obesity complicating pregnancy, third trimester; O99.333 Smoking (tobacco) complicating pregnancy, third trimester; Z3A.36 36 weeks gestation of pregnancy
CPT/HCPCS: 76819

== ENCOUNTER 2024-09-06 09:00 | Outpatient (CLI) | payer BC, OTHER, SELFPAY | END 2024-09-06 23:59 | disposition home or self-care (01) | LOC: LAB.DROPOF 09-10 15:40 | PROVIDERS: PCP Obstetrics & Gynecology; Visit Provider Obstetrics & Gynecology | DX: Z34.83 Encounter for supervision of other normal pregnancy, third trimester (principal) | CPT/HCPCS: 86403 ==

== ENCOUNTER 2024-09-08 11:46 | Outpatient (CLI) | payer BC, OTHER, SELFPAY ==
[2024-09-08 12:14] LABS: Basophils % 0.4 % (0.1-2.0); Eosinophils # 0.1 K/mm3 (0.0-0.4); Eosinophils % 1.5 % (0.1-12.0); Hematocrit 33.3 % (37.0-47.0); Hemoglobin 11.7 g/dL (12.2-16.2); Lymphocytes # 1.8 K/mm3 (0.7-4.5); Lymphocytes % 24.2 % (10-50); Mean Corpuscular HGB Conc 35.1 g/dL (31.8-35.4); Mean Corpuscular Hemoglobin 31.7 pg (27.0-31.2); Mean Corpuscular Volume 90.2 fl (81-99); Mean Platelet Volume 10.2 fl (7.4-10.4); Monocytes # 0.5 K/mm3 (0.1-1.0); Monocytes % 6.8 % (1.7-9.3); Neutrophils # 4.8 K/mm3 (1.8-7.8); Neutrophils % 66.8 % (37.0-80.0); Platelet Count 187 K/mm3 (142-424); Red Blood Count 3.69 M/mm3 (4.20-5.40); Red Cell Distribution Width 12.6 % (11.5-17.5); White Blood Count 7.2 K/mm3 (4.8-10.8)
[2024-09-08 12:21] LABS: Creatinine,Urine Random 53 mg/dL (Not Estab.)
[2024-09-08 12:38] LABS: Activated Partial Thrombo Time 27.5 seconds (22.8-30.6); INR 0.86 (0.9-1.1); Prothrombin Time 9.8 seconds (10.1-12.5)
[2024-09-08 13:02] LABS: Alanine Aminotransferase 21 U/L (12-78); Albumin Level 3.3 g/dl (3.5-5.0); Albumin/Globulin Ratio 1.4 (1.1-1.8); Alkaline Phosphatase 108 U/L (38-126); Anion Gap 7.1 mEq/L (5-15); Aspartate Amino Transferase 28 U/L (14-36); Blood Urea Nitrogen 8 mg/dl (7-17); Calcium 8.9 mg/dl (8.4-10.2); Carbon Dioxide 24 mmol/L (22.0-30.0); Chloride 107 mmol/L (98-107); Estimated Glomerular Filt Rate 141 ml/min (>60); GFR (African American) 171 ML/MIN (>60); Globulin 2.3 g/dL (1.3-3.2); Glucose 80 mg/dl (74-100); Potassium 4.1 mmoL/L (3.5-5.1); Sodium 134 mmol/L (136-145); Total Protein,Serum 5.6 g/dl (6.3-8.2); Uric Acid 3.4 mg/dl (2.5-6.2)
[2024-09-08 13:05] LABS: Bilirubin,Total 0.1 mg/dl (0.2-1.3)
[2024-09-08 13:29] LABS: Fibrinogen 483 mg/dL (229.9-363.5)
[2024-09-08 15:00] LABS: Total Protein 24 Hour,Urine 341 mg/24 hr (40-90); Total Volume,Urine 3100 mL (600-1600)
== END 2024-09-08 23:59 | disposition home or self-care (01) ==
LOC: LAB 11:47
PROVIDERS: PCP Nurse Practitioner Family; Visit Provider Obstetrics & Gynecology
DX: O13.3 Gestational [pregnancy-induced] hypertension without significant proteinuria, third trimester (principal); Z3A.37 37 weeks gestation of pregnancy
CPT/HCPCS: 36415; 80053; 82570; 84155; 84156; 84550; 85025; 85384; 85610; 85730; 86403

== ENCOUNTER 2024-09-09 11:44 | Inpatient (IN) | payer BC, OTHER, SELFPAY ==
[2024-09-09 12:06] VITALS: BMI 53.9
[2024-09-09 12:43] LABS: Microscopic, Urine URINE MICROSCOPIC (MICROSCOPIC)
[2024-09-09 12:46] LABS: Basophils % 0.4 % (0.1-2.0); Eosinophils # 0.1 K/mm3 (0.0-0.4); Eosinophils % 1.6 % (0.1-12.0); Hematocrit 32.7 % (37.0-47.0); Hemoglobin 11.4 g/dL (12.2-16.2); Lymphocytes # 1.6 K/mm3 (0.7-4.5); Lymphocytes % 21.3 % (10-50); Mean Corpuscular HGB Conc 34.9 g/dL (31.8-35.4); Mean Corpuscular Hemoglobin 31.5 pg (27.0-31.2); Mean Corpuscular Volume 90.3 fl (81-99); Mean Platelet Volume 10.6 fl (7.4-10.4); Monocytes # 0.5 K/mm3 (0.1-1.0); Monocytes % 6.3 % (1.7-9.3); Neutrophils # 5.4 K/mm3 (1.8-7.8); Neutrophils % 70.3 % (37.0-80.0); Platelet Count 171 K/mm3 (142-424); Red Blood Count 3.62 M/mm3 (4.20-5.40); Red Cell Distribution Width 12.7 % (11.5-17.5); White Blood Count 7.7 K/mm3 (4.8-10.8)
[2024-09-09 12:57] LABS: Albumin Level 3.5 g/dl (3.5-5.0); Chloride 107 mmol/L (98-107); Potassium 3.9 mmoL/L (3.5-5.1); Sodium 133 mmol/L (136-145)
[2024-09-09 13:00] LABS: Alanine Aminotransferase 23 U/L (12-78); Albumin/Globulin Ratio 1.3 (1.1-1.8); Alkaline Phosphatase 115 U/L (38-126); Anion Gap 7.9 mEq/L (5-15); Aspartate Amino Transferase 36 U/L (14-36); Blood Urea Nitrogen 8 mg/dl (7-17); Carbon Dioxide 22 mmol/L (22.0-30.0); Creatinine Clearance Estimated 133 mL/min (50-200); Estimated Glomerular Filt Rate 114 ml/min (>60); GFR (African American) 138 ML/MIN (>60); Globulin 2.6 g/dL (1.3-3.2); Total Protein,Serum 6.1 g/dl (6.3-8.2)
[2024-09-09 13:01] LABS: Glucose 103 mg/dl (74-100)
[2024-09-09 13:03] VITALS: BP 145/78; PULSE 73; RESP 18; TEMP 36.8; O2SAT 99; BMI 53.9
[2024-09-09 13:04] LABS: Bilirubin,Total < 0.1 mg/dl (0.2-1.3)
[2024-09-09 13:21] LABS: Appearance,Urine Slightly Cloudy (Clear); Blood, Urine Negative (Negative); Color,Urine Yellow (Yellow); Glucose,Urine (UA) Negative (Negative); Ketones,Urine Negative (Negative); Nitrate,Urine Negative (Negative); PH,Urine 7.5 (5.0-8.5); Protein,Urine Negative (Negative)
[2024-09-09 13:22] LABS: Bacteria,Urine Trace /lpf; Bilirubin,Urine Negative (Negative); Leukocyte Esterase,Urine 2+ (Negative); Urobilinogen,Urine 0.2 EU/dl (0.2)
[2024-09-09] MEDS: miSOPROStol 100MCG TABLET 50 MCG PO ×2 (13:48→19:57)
[2024-09-09] MEDS: LABETALOL 100MG TABLET 200 MG PO ×2 (15:05→22:07)
[2024-09-09] MEDS: ACETAMINOPHEN 500MG TAB 1000 MG PO (15:14)
[2024-09-09] MEDS: CYCLOBENZAPRINE 10MG TABLET 5 MG PO (15:22)
[2024-09-09 19:44] VITALS: BP 134/78; PULSE 76; RESP 17; TEMP 36.8; O2SAT 99
[2024-09-09] MEDS: BUTORPHANOL TARTRATE 1 MG/ML VIAL IV (23:03)
[2024-09-10] MEDS: miSOPROStol 100MCG TABLET 50 MCG PO ×3 (02:04→20:32)
[2024-09-10 03:47] VITALS: BP 113/80; PULSE 80; RESP 16; TEMP 36.7; O2SAT 97
[2024-09-10] MEDS: BUTORPHANOL TARTRATE 1 MG/ML VIAL IV (03:51)
--- NOTE | 2024-09-10 08:26 | HMH.PHAINT1 ---
Pharmacy Intervention Comments: MEDICATION RECONCILIATION COMPLETED ON PATIENT USING EXTERNAL FILL HISTORY FROM PHARMACY. -FREDO VAZQUEZ, GINAD
[2024-09-10] MEDS: LABETALOL 100MG TABLET 200 MG PO ×3 (08:44→20:56)
[2024-09-10] MEDS: OXYTOCIN/RINGERS LACTATE 30 UNITS/500 ML BAG IV (08:45)
[2024-09-10] MEDS: LACTATED RINGERS 1000ML 1,000 ML 250 ML IV (08:45)
--- NOTE | 2024-09-10 09:16 | EXP.OB.APHP ---
OB - H&P: HPI Antepartum History of Present Illness Chief complaint: Scheduled induction of labor History of present illness: Ms Sofia Moralez is a 34 yo at 37w1d who presents to [facility] for scheduled induction of labor secondary to GHTN and GDM. She is currently taking Labetalol 200 mg PO q 12 hours. GDM is controlled with diet. also complicated by maternal obesity, tobacco use and anxiety. She has had good care. History of Present Criteria for establishing EDC:: based on 1st trimester US only care: good care Ultrasounds: normal mid trimester US Obstetrical complications: gestational diabetes and gestational hypertension Labs Blood type: B (+) positive Rubella: immune RPR/VDRL: nonreactive GBS status: negative HBsAG: negative PFSH PFSH Disclaimer: The information contained in this section may have been updated after the patient was seen, as this information can be updated by other users. Medical History Gestational diabetes mellitus Gestational hypertension Anxiety during Tobacco use affecting , antepartum Maternal obesity affecting , antepartum History of anxiety Surgical History Hx laparoscopic cholecystectomy Family History Other Cancer Social History (Updated 09/09/24 @ 12:23 by Brent Whelan RN) Smoking Status: Current every day smoker alcohol intake: never substance use type: former substance user current occupational status: employed Travel in the last 8 weeks: None number of children: 0 Have you lived/traveled outside US in past 30 days?: No Contact w/someone who lives/traveled outside US past 30 days?: No Exposure to someone with infectious disease in past 14 days?: No Do you have a fever (greater than 100.4 F or 38 C)?: No Have you tested positive for COVID-19: No Exposed to someone with COVID-19 in past 14 days?: No Do you have a sore throat?: No Do you have a cough?: No Do you have any weakness?: No Are you experiencing any nausea/vomitting?: No Do you have any diarrhea?: No Are you experiencing any unusual bleeding?: No Do you have any muscle aches/pain?: No Do you have any abdominal pain?: No Are you experiencing loss of taste or smell?: No Other Medical History Have you received the Flu Vaccine for this season: No Have you received the Pneumonia Vaccine: No Review of Systems Review of Systems Review of systems:: pertinent systems reviewed and negative unless documented below Meds Home Medications and Allergies Home Medications ?Medication ?Instructions ?Recorded ?Confirmed ?Type vits no.126-ferrous fum 1 tab PO DAILY 02/22/24 09/09/24 History 28 mg iron-folic acid 800 mcg tablet (Classic ) blood sugar diagnostic (Blood #50 ea 07/30/24 09/09/24 Rx Glucose Test strips) blood-glucose meter (Blood Glucose #1 ea 07/30/24 09/09/24 Rx Monitoring kit) blood sugar diagnostic (FreeStyle #100 ea 08/02/24 09/09/24 Rx Lite Strips) blood-glucose meter (FreeStyle #1 ea 08/02/24 09/09/24 Rx Lite Meter kit) lancets 28 gauge (FreeStyle #100 ea 08/17/24 09/09/24 Rx Lancets) labetalol 200 mg tablet 200 mg PO TID #90 tabs 09/04/24 09/09/24 Rx cyclobenzaprine 5 mg tablet 5 mg PO TIDP PRN muscle spasm 09/10/24 09/10/24 History New Prescriptions to Start Prescriptions: Allergies Allergy/AdvReac Type Severity Reaction Status Date / Time No Known Allergies Allergy Verified 08/31/24 15:48 OB - H&P: Exam Physical Exam Vital signs: Temp Pulse Resp BP Pulse Ox O2 Del Method 98.1 F 80 16 113/80 97 Room Air 09/10/24 03:47 09/10/24 03:47 09/10/24 03:47 09/10/24 03:47 09/10/24 03:47 09/10/24 03:47 Constitutional no acute distress and cooperative Routine HEENT Exam Head: Present normocephalic and atraumatic Eye: Absent conjunctivae pink ENT: Present mucous membranes moist Routine Neck Exam Present full ROM Routine Respiratory Exam Present CTA bilaterally and normal respiratory effort Routine Cardiovascular Exam Present RRR Routine Abdominal Exam Present soft (Gravid); Absent tenderness Routine Rectal Exam Patient deferred: visual exam Routine Exam External: Present normal urethra appearance; Absent swelling, tenderness, lesions, ecchymosis or lacerations Routine Extremities Exam Present full ROM; Absent edema or calf tenderness Routine Neurological Exam Present alert, moving all extremities and normal speech Routine Psychiatric Exam Present normal affect and cooperative Detailed Labor and Delivery Exam Dilation (cm): 1 Cervix position: anterior station: -3 Consistency: soft Membranes: intact Baseline heart rate: 130 monitor accelerations: Present monitor decelerations: None exterminator helper variability: Moderate (11-25) Contraction frequency (min): 3 OB - Results Labs Labs: Short CBC 09/09/24 Range/Units 12:30 WBC 7.7 (4.8-10.8) K/mm3 Hgb 11.4 L (12.2-16.2) g/dL Hct 32.7 L (37.0-47.0) % Plt Count 171 (142-424) K/mm3 BMP 09/09/24 12:30 Sodium 133 L Potassium 3.9 Chloride 107 Carbon Dioxide 22 BUN 8 Creatinine 0.60 Glucose 103 H Calcium 9.0 Liver Function 09/09/24 Range/Units 12:30 Total Bilirubin < 0.1 L (0.2-1.3) mg/dl AST 36 D (14-36) U/L ALT 23 (12-78) U/L Alkaline Phosphatase 115 (38-126) U/L Albumin 3.5 (3.5-5.0) g/dl Urine 09/09/24 Range/Units 12:08 Urine Color Yellow (Yellow) Urine Appearance Slightly cloudy (Clear) Urine pH 7.5 (5.0-8.5) Ur Specific [place] 1.010 (1.005-1.030) Urine Protein Negative (Negative) Urine Glucose (UA) Negative (Negative) OB - A/P Antepartum (1) Gestational hypertension: Status: Acute (2) Gestational diabetes mellitus: Status: Acute (3) Maternal obesity affecting , antepartum: Status: Acute (4) Tobacco use affecting , antepartum: Status: Acute (5) Anxiety during : Status: Acute Additional Plan Additional Information:: Admit to [facility] L&D for scheduled induction of labor Induction with Cytotec followed by Pitocin GBS negative Close monitoring
[2024-09-10 09:53] LABS: RPR W/RFX Titers Nonreactive (Nonreactive)
[2024-09-10] MEDS: ACETAMINOPHEN 500MG TAB 1000 MG PO (13:47)
--- NOTE | 2024-09-10 13:47 | EXP.LABOR.NO ---
Labor Note Subjective: Date: 09/10/24 Time: 13:47 Comment:: Feeling okay. Irregular contractions. Objective: NST:: Reactive Contractions:: every 2-3 minutes Cervical Dilation:: 2 Effacement:: 50% Station: -3 Membranes: intact Fetus: Monitoring?: Yes monitoring type:: External Problems: (1) Gestational hypertension: Qualifiers: Trimester: third trimester Qualified Code(s): O13.3 - Gestational [-induced] hypertension without significant proteinuria, third trimester Category: Medical Code(s): O13.9 - Gestational [-induced] hypertension without significant proteinuria, unspecified trimester (2) Gestational diabetes mellitus: Qualifiers: Gestational diabetes mellitus control: unspecified Trimester: third trimester Qualified Code(s): O24.419 - Gestational diabetes mellitus in , unspecified control Category: Medical Code(s): O24.419 - Gestational diabetes mellitus in , unspecified control (3) Maternal obesity affecting , antepartum: Qualifiers: Obesity type affecting : unspecified obesity Qualified Code(s): O99.210 - Obesity complicating , unspecified trimester Category: Medical Code(s): O99.210 - Obesity complicating , unspecified trimester (4) Tobacco use affecting , antepartum: Category: Medical Code(s): O99.330 - Smoking (tobacco) complicating , unspecified trimester (5) Anxiety during : Category: Medical Code(s): O99.340 - Other mental disorders complicating , unspecified trimester; F41.9 - Anxiety disorder, unspecified Plan: Continue to monitor?: Yes Additional information:: Cervix is still very thick, very anterior and high. After 3 doses of Cytotec and pitocin cervix dilated to 2 from closed. Discussed two day induction of labor. Sofia would like tho proceed with two day induction of labor. NST reactive. Will give her a rest to eat lunch, shower and get up and walk. Plan for Cytotec 50 mcg PO around 1400 this afternoon.
[2024-09-10 19:28] VITALS: BP 144/65; PULSE 78; RESP 17; TEMP 36.8; O2SAT 98
[2024-09-11] MEDS: miSOPROStol 100MCG TABLET 50 MCG VG (02:32)
[2024-09-11 03:56] VITALS: BP 154/68; PULSE 87; RESP 16; TEMP 36.6; O2SAT 97
[2024-09-11] MEDS: ACETAMINOPHEN 500MG TAB 1000 MG PO ×2 (06:40→22:01)
[2024-09-11 07:35] VITALS: BP 140/64; PULSE 74; RESP 18; TEMP 36.7; O2SAT 98
[2024-09-11 07:51] LABS: POC Glucose,Bedside 111 (70-110)
[2024-09-11 08:00] VITALS: BP 136/74; PULSE 82; RESP 18; TEMP 36.8; O2SAT 99
[2024-09-11] MEDS: LABETALOL 100MG TABLET 200 MG PO ×3 (08:26→20:25)
[2024-09-11] MEDS: OXYTOCIN/RINGERS LACTATE 30 UNITS/500 ML BAG IV (08:26)
[2024-09-11] MEDS: ONDANSETRON 4MG/2ML VIAL 4 MG IV ×2 (11:33→21:57)
--- NOTE | 2024-09-11 11:38 | EXP.LABOR.NO ---
Labor Note Subjective: Date: 09/11/24 Time: 11:38 irregular contractions Comment:: Doing well without complaints Objective: NST:: Reactive Cervical Dilation:: 2 Effacement:: 40% Station: -3 Membranes: intact Fetus: Monitoring?: Yes monitoring type:: External Plan: Anesthesia for epidural?: No Plan for ?: No Continue to monitor?: Yes Additional information:: Patient is not in labor yet. She has received 6 doses of Cytotec. Fonseca balloon placed without complications. Continue with low-dose Pitocin. Plan for amniotomy following balloon removal Blood pressure well-controlled Denies any headaches, vision changes, right upper quadrant pain Endorses good movement
[2024-09-11 12:52] LABS: POC Glucose,Bedside 108 (70-110)
--- NOTE | 2024-09-11 13:51 | P.PNANES_ITS ---
[facility] Disclaimer: The information contained in this section may have been updated after the patient was seen, as this information can be updated by other users. Medical History Gestational diabetes mellitus Gestational hypertension Anxiety during Tobacco use affecting , antepartum Maternal obesity affecting , antepartum History of anxiety Surgical History Hx laparoscopic cholecystectomy Family History Other Cancer Social History (Updated 09/09/24 @ 12:23 by Brent Whelan RN) Smoking Status: Current every day smoker alcohol intake: never substance use type: former substance user current occupational status: employed Travel in the last 8 weeks: None number of children: 0 Have you lived/traveled outside US in past 30 days?: No Contact w/someone who lives/traveled outside US past 30 days?: No Exposure to someone with infectious disease in past 14 days?: No Do you have a fever (greater than 100.4 F or 38 C)?: No Have you tested positive for COVID-19: No Exposed to someone with COVID-19 in past 14 days?: No Do you have a sore throat?: No Do you have a cough?: No Do you have any weakness?: No Are you experiencing any nausea/vomitting?: No Do you have any diarrhea?: No Are you experiencing any unusual bleeding?: No Do you have any muscle aches/pain?: No Do you have any abdominal pain?: No Are you experiencing loss of taste or smell?: No [facility] Anesthesia Checklist Patient Identification Patient Identification: Arm Band Structural Data Admitted From: Inpatient Planned Operative Procedure/s: Labor Epidural Consent for Planned Operative Procedure(s) Verified: Yes Verified Documents: Surgical Consent and History and Physical Additional verifications Anesthesia Reactions: No Neurological Assessment Level of Consciousness: Awake, Alert and Appropriate Anesthesia Plan Anesthesia Risk discussed: Yes Anesthesia Plan: Verified ASA Class: III Anesthesia Type: Epidural
[2024-09-11 15:06] LABS: POC Glucose,Bedside 122 (70-110)
[2024-09-11 16:13] VITALS: BP 155/55; PULSE 63; RESP 18; TEMP 36.6; O2SAT 99
[2024-09-11 17:27] LABS: POC Glucose,Bedside 86 (70-110)
[2024-09-11 20:19] LABS: POC Glucose,Bedside 90 (70-110)
[2024-09-11] MEDS: ALUMINUM/MAGNESIUM/SIMETHICONE 30ML UDC 30 ML PO (20:25)
[2024-09-11] MEDS: LACTATED RINGERS 1000ML 1,000 ML 999 ML IV (21:11)
[2024-09-11 22:21] LABS: POC Glucose,Bedside 108 (70-110)
[2024-09-11] MEDS: CALCIUM CARBONATE 500MG CHEWTAB 1000 MG PO (22:49)
[2024-09-11] MEDS: diphenhydrAMINE 50MG/ML VIAL 25 MG IVP (22:49)
[2024-09-12] VITALS (7 sets, daily range): BP systolic 124–143; BP diastolic 58–71; PULSE 67–76; RESP 16–18; TEMP 36.4–36.8; O2SAT 96–99
[2024-09-12 00:40] LABS: POC Glucose,Bedside 93 (70-110)
[2024-09-12] MEDS: OXYTOCIN/RINGERS LACTATE 30 UNITS/500 ML BAG IV (02:05)
[2024-09-12 03:10] LABS: POC Glucose,Bedside 93 (70-110)
[2024-09-12 05:23] LABS: POC Glucose,Bedside 91 (70-110)
[2024-09-12] MEDS: LABETALOL 100MG TABLET 200 MG PO ×3 (08:06→20:05)
--- NOTE | 2024-09-12 08:30 | EXP.LABOR.NO ---
Labor Note Subjective: Date: 09/12/24 Time: 08:30 Comment:: Comfortable with epidural Objective: NST:: Reactive Contractions:: every 4-5 minutes Cervical Dilation:: 6 Effacement:: 70% Station: -3 Membranes: artificially ruptured Fetus: Monitoring?: Yes monitoring type:: Internal and External and Internal Comment:: NST category 1, reactive Assessment: Labor progressing?: No Cephalopelvic disproportion?: Yes Problems: (1) Gestational hypertension: Qualifiers: Trimester: third trimester Qualified Code(s): O13.3 - Gestational [-induced] hypertension without significant proteinuria, third trimester Category: Medical Code(s): O13.9 - Gestational [-induced] hypertension without significant proteinuria, unspecified trimester (2) Gestational diabetes mellitus: Qualifiers: Gestational diabetes mellitus control: unspecified Trimester: third trimester Qualified Code(s): O24.419 - Gestational diabetes mellitus in , unspecified control Category: Medical Code(s): O24.419 - Gestational diabetes mellitus in , unspecified control (3) Maternal obesity affecting , antepartum: Qualifiers: Obesity type affecting : unspecified obesity Qualified Code(s): O99.210 - Obesity complicating , unspecified trimester Category: Medical Code(s): O99.210 - Obesity complicating , unspecified trimester (4) Tobacco use affecting , antepartum: Category: Medical Code(s): O99.330 - Smoking (tobacco) complicating , unspecified trimester (5) Failure to progress in labor: Category: Medical Code(s): O62.2 - Other uterine inertia (6) Cephalopelvic disproportion due to generally contracted pelvis: Category: Medical Code(s): O33.1 - Maternal care for disproportion due to generally contracted pelvis Plan: Plan for ?: Yes Additional information:: Sofia has undergone two day induction of labor with Cytotec 50 mcg x 3 doses on 09/09 followed by Pitocin. And then a break from induction with another 3 doses of Cytotec starting the afternoon of 09/10/24. On 09/11 a Cook catheter inserted at cervical dilation 2/50/-3. She had low dose Pitocin with cook catheter. Cook catheter came out and she was 6/80/-2 at 1523 on 09/11. Amniotomy was performed with clear fluid. Pitocin was continued. She was given a break from Pitocin between 2300 and 0200 this morning. No cervical change. Pitocin was restarted at 0200. Pitocin reached 12 units. Cervical exam at 0800 was 6/70/-3, anterior. Narrow pelvic arch and caput noted on exam. Discussed exam findings with Sofia. Decision was made to proceed with primary for CPD and failure to progress. Discussed risks, benefits, alternatives, expectations and possible complications of surgery. All questions addressed and answered. She voiced understanding of risks and possible complications. Consent form signed Proceed with primary
[2024-09-12 09:36] LABS: POC Glucose,Bedside 91 (70-110)
[2024-09-12 10:04] LABS: Albumin Level 3.4 g/dl (3.5-5.0); Chloride 106 mmol/L (98-107); Potassium 3.8 mmoL/L (3.5-5.1); Sodium 135 mmol/L (136-145)
[2024-09-12 10:07] LABS: Alanine Aminotransferase 21 U/L (12-78); Albumin/Globulin Ratio 1.3 (1.1-1.8); Alkaline Phosphatase 130 U/L (38-126); Anion Gap 8.8 mEq/L (5-15); Aspartate Amino Transferase 22 U/L (14-36); Bilirubin,Total 0.3 mg/dl (0.2-1.3); Blood Urea Nitrogen 4 mg/dl (7-17); Carbon Dioxide 24 mmol/L (22.0-30.0); Creatinine Clearance Estimated 160 mL/min (50-200); Estimated Glomerular Filt Rate 141 ml/min (>60); GFR (African American) 171 ML/MIN (>60); Globulin 2.6 g/dL (1.3-3.2)
[2024-09-12 10:08] LABS: Calcium 9.4 mg/dl (8.4-10.2); Glucose 94 mg/dl (74-100)
[2024-09-12 10:28] LABS: POC Glucose,Bedside 104 (70-110)
[2024-09-12] MEDS: CEFAZOLIN SODIUM 3 GM in 0.9 % SODIUM CHLORIDE 100 ML IV (12:00)
--- NOTE | 2024-09-12 13:29 | P.OP_ITS ---
Date of procedure: 09/12/24 Pre-op Diagnosis:: 1. IUP at 37w3d 2. GHTN 3. GDMA1 4. Maternal obesity 5. Tobacco use in 6. CPD 7. Failure to progress/failed two day induction of labor Post-op Diagnosis:: 1. IUP at 37w3d 2. GHTN 3. GDMA1 4. Maternal obesity 5. Tobacco use in 6. CPD 7. Failure to progress/failed two day induction of labor Procedure performed:: Primary Low Transverse Section Surgeon:: Eusebia Nieto DO Wireless Operator(s):: Ramy Heredia MD DOCK GUARD:: Horace Jiménez Anesthesia: spinal Estimated blood loss (mL): 700 Clinical Note:: Ms Sofia Moralez is a 34 yo at 37w1d who presents to [facility] for scheduled induction of labor secondary to GHTN and GDM. She is currently taking Labetalol 200 mg PO q 12 hours. GDM is controlled with diet. also complicated by maternal obesity, tobacco use and anxiety. She has had good care. Sofia has undergone two day induction of labor with Cytotec 50 mcg x 3 doses on 09/09 followed by Pitocin. And then a break from induction with another 3 doses of Cytotec starting the afternoon of 09/10/24. On 09/11 a Cook catheter inserted at cervical dilation 2/50/-3. She had low dose Pitocin with cook catheter. Cook catheter came out and she was 6/80/-2 at 1523 on 09/11. Amniotomy was performed with clear fluid. Pitocin was continued. She was given a break from Pitocin between 2300 and 0200 this morning. No cervical change. Pitocin was restarted at 0200. Pitocin reached 12 units. Cervical exam at 0800 was 6/70/-3, anterior. Narrow pelvic arch and caput noted on exam. Discussed exam findings with Sofia. Decision was made to proceed with primary for CPD and failure to progress. Discussed risks, benefits, alternatives, expectations and possible complications of surgery. All questions addressed and answered. She voiced understanding of risks and possible complications. Consent form signed. Operative findings:: 1. Live male baby weighing 7 lb 8 oz. APGARs 8 (1 min), 9 (5 min). His name is undecided 2. Nuchal cord x 1, easily reduced 3. Grossly normal appearing uterus, bilateral fallopian tubes and ovaries Operative note:: The risks, benefits and alternatives of the procedure were reviewed with the patient. Informed consent was obtained. Patient was taken to the operating room where spinal anethesia was placed. The patient received 3 grams of Ancef preoperatively. Patient was placed in dorsal supine position with a leftward tilt. SCDs in place. Fonseca catheter had been placed and was draining clear urine prior to the start of the procedure. heart tones were obtained. Vagina was prepped with Betadine swabs x 3. Patient was then prepped and draped in normal sterile fashion. Allis clamp test was performed to ensure adequate anesthesia. A Pfannenstiel skin incision was made 2 cm above pubic symphysis. This was carried through to underlying layer of fascia. Fascia was incised in midline, extended laterally with Rod scissors. Superior aspect of fascial incision was grasped with two Zach clamps, elevated up, and rectus muscle dissected off bluntly and sharply with Rod scissors. The retcus muscle was then in the midline and the peritoneum was entered bluntly with a digit. Peritoneal incision was then extended superiorly and inferiorly with good visualization of the bladder. Santos retractor was inserted. The lower uterine segment was incised in a transverse fashion. Clear amniotic fluid was noted. Head was delivered without difficulty. Nuchal x 1 was easily reduced. Remainder of body was delivered without difficulty. Mouth and nares were bulb suctioned. Spontaneous cry was noted. Delayed cord clamping was performed for 60 seconds. The umbilical cord was clamped and cut. The infant was handed to awaiting pediatric staff in stable condition. Apgars were 8 (1 min), 9 (5 min). Cord blood was obtained. Gentle traction on the umbilical cord and uterine fundal massage delivered the placenta. Placenta was intact. Placenta will be sent to pathology for review. Uterus was cleared of all clots and debris with a moist laparotomy sponge. Corners of the uterine incision were grasped with Allis clamps. The uterine incision was reapproximated with # 1 Vicryl suture in a running, locked stitch. Second layer of the same stitch was used to imbricate the incision. Vesicouterine peritoneum was reapproximated in a running locked stitch with 2-0 Vicryl suture. Hemostasis was noted. Posterior cul-de-sac was cleaned with moist laparotomy sponge. Gutters cleared of all clots and debris with a moist laparotomy sponge. Reinspection of the lower uterine segment demonstrated small amount of oozing. Surgicel gel foam placed over closed uterine incision. Hemostasis was noted. At this point all instruments and sponges were removed from the pelvis.? The peritoneum was grasped with Meka clamps x 3. The peritoneum was reapproximated with 0 Vicryl suture in a running stitch. The corners of the fascia were grasped with Zach clamps, and the fascia was reapproximated with two # 1 Vicryl suture overlapped to the right of midline. Subcutaneous tissue was irrigated with clear return of fluids. The subcutaneous tissue was reapproximated with 3-0 Vicryl in two layers. The skin was reapproximated with metal adriel. Telfa was placed over closed Pfannenstiel skin incision. At the end of the procedure, the uterus was firm with minimal vaginal bleeding. Patient tolerated the procedure well. Instrument, sponges and needle counts were correct x 2. Mom and baby were transported to recovery room in stable condition. Condition: stable Disposition: floor Specimens:: 1. Placenta and umbilical cord 2. Cord blood Complications:: None
--- NOTE | 2024-09-12 13:34 | P.PNANES_ITS ---
[facility] Anesthesia Record Part I Anesthesia Record I Intake, IV Amount: 1,000 Hydration: Adequate Estimated blood loss (mL): 700 Urine output (mL): 100 Blood Products used (#): none Blood Pressure: 137/71 SaO2: 96 Pulse Rate: 68 Airway Patency: Patent Respiratory Rate: 16 Temperature: 97.6 F Patient is:: Awake and Stable Stable to PACU at:: 13:20
--- NOTE | 2024-09-12 13:50 | SUR.OPER ---
1320- detailed report given to tamie murry in OB room. Pt v/s stable, dressings CDI. Spouse at bs.
[2024-09-12] MEDS: OXYTOCIN/RINGERS LACTATE 30 UNITS/500 ML BAG 40 UNITS IV ×2 (13:52→13:56)
[2024-09-12] MEDS: ACETAMINOPHEN 500MG TAB 1000 MG PO ×2 (13:55→21:31)
--- NOTE | 2024-09-12 18:07 | P.PNANES_ITS ---
[facility] Anesthesia Record Part II Anesthesia Record Part II Discharge Time: 13:56 Destination: Obstetric PACU nurse assessment reviewed?: Yes Patient Condition:: Good Anesthesia Complications:: None Swallowing reflex intact?: Yes Airway Patency: Patent Cyanosis?: No Blood Pressure: 126/58 SaO2: 99 Respiratory Rate: 18 Pulse Rate: 67 Temperature: 98 F Mental Status: Alert & Oriented Pain level:: 0 Nausea and/or vomitting:: None Intake, IV Amount: 0 Hydration: Adequate
[2024-09-12] MEDS: CEFAZOLIN SODIUM 2 GM in 0.9 % SODIUM CHLORIDE 100 ML IV (19:29)
[2024-09-12] MEDS: SENNA 8.6MG TABLET 8.6 MG PO (19:29)
[2024-09-12] MEDS: KETOROLAC 30MG/ML VIAL 30 MG IV (19:29)
[2024-09-12] MEDS: PRENATAL MULTIVITAMIN W/IRON 1 EACH PO (19:30)
[2024-09-13] MEDS: KETOROLAC 30MG/ML VIAL 30 MG IV ×2 (01:15→07:49)
[2024-09-13] MEDS: ACETAMINOPHEN 500MG TAB 1000 MG PO ×4 (03:31→20:56)
[2024-09-13] MEDS: CEFAZOLIN SODIUM 2 GM in 0.9 % SODIUM CHLORIDE 100 ML IV (03:31)
[2024-09-13 06:23] LABS: Basophils % 0.3 % (0.1-2.0); Eosinophils # 0.2 K/mm3 (0.0-0.4); Eosinophils % 1.7 % (0.1-12.0); Hematocrit 28.3 % (37.0-47.0); Hemoglobin 9.6 g/dL (12.2-16.2); Lymphocytes # 1.9 K/mm3 (0.7-4.5); Lymphocytes % 20.6 % (10-50); Mean Corpuscular HGB Conc 33.9 g/dL (31.8-35.4); Mean Corpuscular Hemoglobin 31.3 pg (27.0-31.2); Mean Corpuscular Volume 92.2 fl (81-99); Mean Platelet Volume 11.3 fl (7.4-10.4); Monocytes # 0.8 K/mm3 (0.1-1.0); Monocytes % 8.3 % (1.7-9.3); Neutrophils # 6.3 K/mm3 (1.8-7.8); Neutrophils % 68.8 % (37.0-80.0); Platelet Count 115 K/mm3 (142-424); Red Blood Count 3.07 M/mm3 (4.20-5.40); Red Cell Distribution Width 12.7 % (11.5-17.5); White Blood Count 9.1 K/mm3 (4.8-10.8)
[2024-09-13 07:55] VITALS: BP 144/77; PULSE 65; RESP 18; TEMP 36.5; O2SAT 98
[2024-09-13] MEDS: SENNA 8.6MG TABLET 8.6 MG PO ×2 (08:54→21:06)
[2024-09-13] MEDS: LABETALOL 100MG TABLET 200 MG PO ×3 (08:54→20:55)
--- NOTE | 2024-09-13 11:20 | P.PN_ITS ---
Subjective *Date: 09/13/24 *Time: 11:20 Interval history: POD # 1 s/p PLTCS Feeling well. Pain controlled. Formula feeding but plans on trying to breast feed. Lochia is appropriate. Voiding without difficulty and passing flatus. Tolerating regular diet. Denies fever/chills, chest pain and shortness of breath. No headaches, vision changes, lightheadedness/dizziness. No lower extremity swelling. Ambulating well ad ariel. Medical Exam Vital signs and Labs for Last 24 Hours: Vital Signs Temp Pulse Pulse Resp BP BP Pulse Ox 09/13/24 07:55 97.7 F 65 18 144/77 H 98 09/12/24 18:08 18 09/12/24 17:42 98.2 F 76 18 143/68 H 99 09/12/24 13:56 98.0 F 67 18 126/58 L 99 09/12/24 13:47 98.0 F 69 18 124/63 98 09/12/24 13:38 97.6 F 71 18 130/66 97 09/12/24 13:35 97.6 F 68 16 137/71 09/12/24 13:27 97.6 F 72 18 137/71 97 O2 Del Method 09/13/24 07:55 Room Air 09/12/24 18:08 09/12/24 17:42 Room Air 09/12/24 13:56 Room Air 09/12/24 13:47 Room Air 09/12/24 13:38 Room Air 09/12/24 13:35 09/12/24 13:27 Room Air Intake and Output 09/12/24 09/13/24 09/13/24 23:59 07:59 15:59 Intake Total 0 / 1000 Output Total 250 / 250 Balance 0 / 200 -250 / -250 Intake: Intake, Total IV Amount 0 / 1000 Output: Output, Urine Amount 250 / 250 Laboratory Results - last 24 hr 09/09/24 12:30: Crossmatch (AHG) See Detail 09/13/24 05:46: WBC 9.1, RBC 3.07 L, Hgb 9.6 L, Hct 28.3 L, MCV 92.2, MCH 31.3 H , MCHC 33.9, RDW 12.7, Plt Count 115 L D, MPV 11.3 H, Neut % (Auto) 68.8, Lymph % (Auto) 20.6, [place] % (Auto) 8.3, Eos % (Auto) 1.7, Baso % (Auto) 0.3, Neut # (Auto) 6.3, Lymph # (Auto) 1.9, [place] # (Auto) 0.8, Eos # (Auto) 0.2, Baso # (Auto) 0.0 I & O for Labs for Last 24 Hours: Intake & Output 09/10/24 09/11/24 09/12/24 09/13/24 23:59 23:59 23:59 23:59 Intake Total 1000 / 1000 Output Total 1100 / 1100 800 / 800 250 / 250 Balance -1100 / -1100 200 / 200 -250 / -250 Microbiology Reports for the Last 24 Hours: Microbiology 09/09/24 12:08 Urine,Clean Catch Urine Culture - Final Multiple organisms, suggests contamination. Head: Present atraumatic and normocephalic ENT: Present normal exam Neck: Present full ROM Respiratory: Present CTA bilaterally and normal respiratory effort Cardiac: Present Reg Rate and Rhythm GI: Present soft and normal bowel sounds; Absent distention or tenderness Comments:: Pfannenstiel incision clean/dry/intact with metal adriel and steri strips in place (female): Present deferred Extremities: Present full ROM; Absent edema or calf tenderness Neuro: Present alert, awake and moves all extremities Assessment and Plan *Assessment and plan (1) S/P section: Status: Acute Category: Surgical Code(s): Z98.891 - History of uterine scar from previous surgery (2) Cephalopelvic disproportion due to generally contracted pelvis: Status: Acute Category: Medical Code(s): O33.1 - Maternal care for disproportion due to generally contracted pelvis (3) Failure to progress in labor: Status: Acute Category: Medical Code(s): O62.2 - Other uterine inertia (4) Gestational diabetes mellitus: Status: Acute Qualifiers: Gestational diabetes mellitus control: unspecified Trimester: third trimester Qualified Code(s): O24.419 - Gestational diabetes mellitus in , unspecified control Category: Medical Code(s): O24.419 - Gestational diabetes mellitus in , unspecified control (5) Gestational hypertension: Status: Acute Qualifiers: Trimester: third trimester Qualified Code(s): O13.3 - Gestational [-induced] hypertension without significant proteinuria, third trimester Category: Medical Code(s): O13.9 - Gestational [-induced] hypertension without significant pr oteinuria, unspecified trimester (6) Maternal obesity affecting , antepartum: Status: Acute Qualifiers: Obesity type affecting : unspecified obesity Qualified Code(s): O99.210 - Obesity complicating , unspecified trimester Category: Medical Code(s): O99.210 - Obesity complicating , unspecified trimester (7) Tobacco use affecting , antepartum: Status: Acute Category: Medical Code(s): O99.330 - Smoking (tobacco) complicating , unspecified trimester (8) Anxiety during : Status: Acute Category: Medical Code(s): O99.340 - Other mental disorders complicating , unspecified trimester; F41.9 - Anxiety disorder, unspecified (9) Acute blood loss anemia: Status: Acute Category: Medical Code(s): D62 - Acute posthemorrhagic anemia Plan Continue routine care Encouraged increased ambulation Continue labetalol 200 mg TID AM Hgb 9.6. Venofer 200 mg IV x 1 dose ordered. She admits she doesn't tolerate PO iron. However, IV infiltrated and decision was made to cancel Venofer order Plan d/c home tomorrow, POD # 2
[2024-09-13] MEDS: IBUPROFEN 400 MG TABLET 800 MG PO ×2 (13:11→20:55)
[2024-09-13] MEDS: PRENATAL MULTIVITAMIN W/IRON 1 EACH PO (16:58)
[2024-09-13] MEDS: ALUMINUM/MAGNESIUM/SIMETHICONE 30ML UDC 30 ML PO (21:06)
[2024-09-14] MEDS: ACETAMINOPHEN 500MG TAB 1000 MG PO ×2 (04:11→12:36)
[2024-09-14] MEDS: IBUPROFEN 400 MG TABLET 800 MG PO (06:14)
[2024-09-14 08:13] VITALS: BP 124/56; PULSE 84; RESP 18; TEMP 36.6; O2SAT 99
[2024-09-14] MEDS: LABETALOL 100MG TABLET 200 MG PO ×2 (08:18→12:36)
--- NOTE | 2024-09-14 09:40 | EXP.DC.SUM ---
General Admission date:: 09/09/24 Discharge date: 09/14/24 HPI HPI HPI: POD # 2 s/p PLTCS Feeling well. Pain controlled. Formula feeding but plans on trying to breast feed. Lochia is light. Voiding without difficulty and passing flatus. Tolerating regular diet. Denies fever/chills, chest pain and shortness of breath. No headaches, vision changes, lightheadedness/dizziness. No lower extremity swelling. Ambulating well ad ariel. Hospital Course Hospital Course Hospital Course: Ms Sofia Moralez is a 34 yo at 37w1d who presents to [facility] for scheduled induction of labor secondary to GHTN and GDM. She is currently taking Labetalol 200 mg PO q 12 hours. GDM is controlled with diet. also complicated by maternal obesity, tobacco use and anxiety. She has had good care. Sofia had a two day induction of labor with Cytotec 50 mcg x 3 doses on 09/09 followed by Pitocin. And then a break from induction with another 3 doses of Cytotec starting the afternoon of 09/10/24. On 09/11 a Cook catheter inserted at cervical dilation 2/50/-3. She had low dose Pitocin with cook catheter. Cook catheter came out and she was 6/80/-2 at 1523 on 09/11. Amniotomy was performed with clear fluid. Pitocin was continued. She was given a break from Pitocin between 2300 and 0200 this morning. No cervical change. Pitocin was restarted at 0200. Pitocin reached 12 units. Cervical exam at 0800 was 6/70/-3, anterior. Narrow pelvic arch and caput noted on exam. Discussed exam findings with Sofia. Decision was made to proceed with primary for CPD and failure to progress. She underwent primary on 09/12/24. She delivered a live male baby, Paolo, 7 lb 8 oz. APGARs 8 (1 min), 9 (5 min). EBL 700 mL. She did well /postoperatively. Pain controlled. Formula feeding. Light lochia. Voiding without difficulty and passing flatus. Tolerating regular diet. Denies fever/chills, chest pain and shortness of breath. No headaches, dizziness/lightheadedness or vision changes. Vital signs stable, afebrile. Heart regular rate and rhythm. Lungs clear to auscultation. Abdomen soft, nontender. No lower extremity swelling. Ambulating well ad ariel. Normal hospital course. She was discharged to home on POD # 2 with instructions to follow-up in the office in 10 days for staple removal or sooner if needed. Exam Data for Last 24 hours Vital signs and Labs for Last 24 Hours: Temp Pulse Resp BP Pulse Ox O2 Del Method 97.7 F 65 18 144/77 H 98 Room Air 09/13/24 07:55 09/13/24 07:55 09/13/24 07:55 09/13/24 07:55 09/13/24 07:55 09/13/24 07:55 I & O for Last 24 hours: Intake & Output 09/11/24 09/12/24 09/13/24 09/14/24 23:59 23:59 23:59 23:59 Intake Total 1000 / 1000 Output Total 1100 / 1100 800 / 800 250 / 250 Balance -1100 / -1100 200 / 200 -250 / -250 Constitutional Constitutional: no acute distress and cooperative *Routine HEENT Exam Head: Present normocephalic and atraumatic Eye: Absent conjunctivae pink ENT: Present mucous membranes moist *Routine Neck Exam Neck: Present full ROM *Routine Respiratory Exam Respiratory: Present CTA bilaterally and normal respiratory effort *Routine Cardiovascular Exam Cardiovascular: Present RRR *Routine Abdominal Exam Abdominal: Present soft; Absent tenderness or distended *Routine Rectal Exam Patient deferred: visual exam *Routine Exam Patient deferred: external exam *Routine Extremities Exam Extremities: Present full ROM; Absent edema or calf tenderness *Routine Neurological Exam Neurological: Present alert, moving all extremities and normal speech Routine Psychiatric Exam Psychiatric: Present normal affect and cooperative DS: Diagnosis Discharge Diagnosis (1) S/P section: Status: Acute Code(s): Z98.891 - History of uterine scar from previous surgery (2) Cephalopelvic disproportion due to generally contracted pelvis: Status: Acute Code(s): O33.1 - Maternal care for disproportion due to generally contracted pelvis (3) Failure to progress in labor: Status: Acute Code(s): O62.2 - Other uterine inertia (4) Gestational diabetes mellitus: Status: Acute Code(s): O24.419 - Gestational diabetes mellitus in , unspecified control Qualifiers: Gestational diabetes mellitus control: unspecified Trimester: third trimester Qualified Code(s): O24.419 - Gestational diabetes mellitus in , unspecified control (5) Gestational hypertension: Status: Acute Code(s): O13.9 - Gestational [-induced] hypertension without significant proteinuria, unspecified trimester Qualifiers: Trimester: third trimester Qualified Code(s): O13.3 - Gestational [-induced] hypertension without significant proteinuria, third trimester (6) Maternal obesity affecting , antepartum: Status: Acute Code(s): O99.210 - Obesity complicating , unspecified trimester Qualifiers: Obesity type affecting : unspecified obesity Qualified Code(s): O99.210 - Obesity complicating , unspecified trimester (7) Tobacco use affecting , antepartum: Status: Acute Code(s): O99.330 - Smoking (tobacco) complicating , unspecified trimester (8) Anxiety during : Status: Acute Code(s): O99.340 - Other mental disorders complicating , unspecified trimester; F41.9 - Anxiety disorder, unspecified (9) Acute blood loss anemia: Status: Acute Code(s): D62 - Acute posthemorrhagic anemia Meds Home Medications and Allergies Home Medications ?Medication ?Instructions ?Recorded ?Confirmed ?Type vits no.126-ferrous fum 1 tab PO DAILY 02/22/24 09/09/24 History 28 mg iron-folic acid 800 mcg tablet (Classic ) labetalol 200 mg tablet 200 mg PO TID #90 tabs 09/04/24 09/09/24 Rx cyclobenzaprine 5 mg tablet 5 mg PO TIDP PRN muscle spasm 09/10/24 09/10/24 History ibuprofen 800 mg tablet 800 mg PO Q8H PRN pain #20 tabs 09/14/24 Rx oxycodone 5 mg tablet 5 mg PO Q4HP PRN Moderate Pain 09/14/24 Rx (4-6) #20 tabs New Prescriptions to Start Prescriptions: ibuprofen Renee Nietonifer oxycodone Eusebia Nieto Allergies Allergy/AdvReac Type Severity Reaction Status Date / Time No Known Allergies Allergy Verified 08/31/24 15:48 Discharge Plan Disposition Patient Disposition: Home, Self-Care Condition: Good Discharge Order Discharge Orders: Discharge Order (Routine); Ordered 09/14/24 Ordered By: Eusebia Nieto Follow up Plan Follow up with: Eusebia Nieto DO [Staff Physician] - 09/21/24 10:30 am Prescriptions/Medication Reconciliation: New oxycodone 5 mg Tablet 5 mg PO Q4HP PRN (Reason: Moderate Pain (4-6)) Qty: 20 0RF ibuprofen 800 mg tablet 800 mg PO Q8H PRN (Reason: pain) Qty: 20 0RF Continued Classic 28 mg iron- 800 mcg tablet 1 tab PO DAILY labetalol 200 mg tablet 200 mg PO TID Qty: 90 1RF cyclobenzaprine 5 mg tablet 5 mg PO TIDP PRN (Reason: muscle spasm) Discontinued (DME) blood-glucose meter [Blood Glucose Monitoring] Kit See Rx Instructions .Route Qty: 1 0RF Rx Instructions: As directed (DME) Blood Glucose Test Strip See Rx Instructions .Route Qty: 50 6RF Rx Instructions: 4x daily (DME) blood-glucose meter [FreeStyle Lite Meter] Kit See Rx Instructions .Route Qty: 1 0RF Rx Instructions: As directed (DME) FreeStyle Lite Strips Strip See Rx Instructions .Route Qty: 100 0RF Rx Instructions: As directed (DME) lancets [FreeStyle Lancets] 28 gauge misc See Rx Instructions .Route Qty: 100 2RF Rx Instructions: 4x daily Problem Reconciliation Problems Reviewed?: Yes Patient Discharge Instructions ACTIVITY: Limited activity DIET: continue same diet and regular diet Additional Instructions: Congratulations!! Discharge: 1. Take 800 mg Ibuprofen every 8 hours as needed for pain. You can also take 500-1000 mg of Tylenol in between doses, every 6-8 hours. If pain persists you can take Oxycodone 5 mg, 1 tablet every 4-6 hours or more as needed. 2. Nothing in the vagina for 6 weeks - no intercourse, douching or tampons. No tub baths/hot tubs or swimming pools - Drink plenty of fluids. - No strenuous activity or driving until released by your doctor. - Don't lift anything heavier than your in the pumpkin seat. 3. Reasons to return to L&D or call On-Call doctor - fever (greater than 100.4) - heavy vaginal bleeding (soaking through 1 pad in less than 2 hours) - vaginal discharge (malodorous and/or purulent) - severe headaches not resolved by medication or rest and leg tenderness/edema 4. depression/blues - Normal to feel anxious/overwhelmed for first 2 weeks - Talk to your doctor if: severe anxiety, trouble bonding with baby, withdrawing from other family members, thoughts of harming yourself or others Patient Instructions: Depression, Hemorrhage, DI for , DI for Pre-eclampsia, [facility] Post Discharge Instructions Print Language: Stateless Providers Primary Care Provider: Anette Norman Admit Provider: Ramy Heredia Attending Provider: Eusebia Nieto
== END 2024-09-14 13:40 | disposition home or self-care (01) | DRG 787 ==
PROVIDERS: Admitting Provider Nurse Practitioner Obstetrics & Gynecology; PCP Nurse Practitioner Family; Visit Provider Obstetrics & Gynecology
PROC: 10D00Z1 Extraction of Products of Conception, Low, Open Approach (ICD-10-PCS; CPT 59514; principal; 2024-09-12 12:00)
DX: O33.1 Maternal care for disproportion due to generally contracted pelvis (principal); D62 Acute posthemorrhagic anemia; Z37.0 Single live birth; O13.4 Gestational [pregnancy-induced] hypertension without significant proteinuria, complicating childbirth; Z3A.37 37 weeks gestation of pregnancy; O24.420 Gestational diabetes mellitus in childbirth, diet controlled; O99.334 Smoking (tobacco) complicating childbirth; F17.210 Nicotine dependence, cigarettes, uncomplicated; O99.344 Other mental disorders complicating childbirth; F41.9 Anxiety disorder, unspecified; O99.214 Obesity complicating childbirth; E66.01 Morbid (severe) obesity due to excess calories; O62.2 Other uterine inertia; O69.81X0 Labor and delivery complicated by cord around neck, without compression, not applicable or unspecified; O90.81 Anemia of the puerperium; Z79.899 Other long term (current) drug therapy
CPT/HCPCS: 36415; 59025; 80053; 81001; 82962; 85025; 86592; 86850; 87086; 94761; G0283; G0378; J0595; J0666; J1200; J1756; J1885; J2405; J3010; J7120

== ENCOUNTER 2024-09-24 13:42 | Outpatient (CLI) | payer OTHER, SELFPAY ==
[2024-09-24] VITALS (7 sets, daily range): BP systolic 138–169; BP diastolic 63–90; PULSE 61–64; RESP 18; TEMP 36.9; O2SAT 97; BMI 51.7
[2024-09-24 14:28] LABS: Microscopic, Urine URINE MICROSCOPIC (MICROSCOPIC)
[2024-09-24 14:37] LABS: Basophils # 0.1 K/mm3 (0-0.2); Basophils % 0.5 % (0.1-2.0); Eosinophils # 0.2 K/mm3 (0.0-0.4); Eosinophils % 2.2 % (0.1-12.0); Hematocrit 34.5 % (37.0-47.0); Hemoglobin 11.8 g/dL (12.2-16.2); Lymphocytes # 2.3 K/mm3 (0.7-4.5); Lymphocytes % 24.3 % (10-50); Mean Corpuscular HGB Conc 34.2 g/dL (31.8-35.4); Mean Corpuscular Volume 90.6 fl (81-99); Mean Platelet Volume 10.8 fl (7.4-10.4); Monocytes # 0.5 K/mm3 (0.1-1.0); Monocytes % 5.2 % (1.7-9.3); Neutrophils # 6.5 K/mm3 (1.8-7.8); Neutrophils % 67.6 % (37.0-80.0); Platelet Count 260 K/mm3 (142-424); Red Blood Count 3.81 M/mm3 (4.20-5.40); White Blood Count 9.6 K/mm3 (4.8-10.8)
[2024-09-24 14:38] LABS: Appearance,Urine CLEAR (Clear); Bilirubin,Urine Negative (Negative); Blood, Urine MODERATE (Negative); Color,Urine YELLOW (Yellow); Glucose,Urine (UA) Negative (Negative); Ketones,Urine Negative (Negative); Leukocyte Esterase,Urine MODERATE (Negative); Nitrate,Urine Negative (Negative); Protein,Urine Negative (Negative); Urobilinogen,Urine 0.2 EU/dl (0.2)
--- NOTE | 2024-09-24 14:39 | PC.NURSE ---
Pt arrived to unit from Dr. Nieto's office to be evaluated for HTN. Reports BPs in office were 162/100 (datascope) and 157/90 (manual). She had GHTN during pregnacy. Pt also states that she believes she has white coat syndrome. She is 12 days (delivered on 09/12/24). Denies having any issues (htn, bleeding, anxiety, swelling, sleep /rest, etc.) since being discharged home. She currently denies any visual disturbances, no edema noted on assessment, no difficulty breathing, no RUQ pain or nausea. She reports occ headaches, but states that they are her normal seasonal allergy headaches that are resolved with Tylenol. Her DTRs are normal, no Clonus noted. Her initial VS on admit was BP 151/74, HR 64, R18, T 98.5. Datascope set to take BPs q15 min. Next BP was 144/69. Labs drawn at time of Saline Lock insertion. Tolerated well. PIH labs have been ordered.
[2024-09-24 14:43] LABS: Albumin Level 3.9 g/dl (3.5-5.0); Chloride 106 mmol/L (98-107); Potassium 4.3 mmoL/L (3.5-5.1); Sodium 137 mmol/L (136-145)
--- NOTE | 2024-09-24 14:45 | PC.NURSE ---
IV saline lock inserted, #20g RT Hand, Tolerated well. Blood drawn for labs at time of insertion.
[2024-09-24 14:46] LABS: Alanine Aminotransferase 24 U/L (12-78); Albumin/Globulin Ratio 1.6 (1.1-1.8); Alkaline Phosphatase 92 U/L (38-126); Anion Gap 9.3 mEq/L (5-15); Aspartate Amino Transferase 27 U/L (14-36); Bilirubin,Total 0.3 mg/dl (0.2-1.3); Blood Urea Nitrogen 16 mg/dl (7-17); Calcium 9.6 mg/dl (8.4-10.2); Carbon Dioxide 26 mmol/L (22.0-30.0); Creatinine Clearance Estimated 100 mL/min (50-200); Estimated Glomerular Filt Rate 82 ml/min (>60); GFR (African American) 99 ML/MIN (>60); Globulin 2.5 g/dL (1.3-3.2); Glucose 83 mg/dl (74-100); Total Protein,Serum 6.4 g/dl (6.3-8.2)
[2024-09-24 14:51] LABS: Fibrinogen 332 mg/dL (229.9-363.5); INR 0.91 (0.9-1.1); Prothrombin Time 10.3 seconds (10.1-12.5)
[2024-09-24 14:52] LABS: Creatinine,Urine Random 48 mg/dL (Not Estab.)
[2024-09-24 15:03] LABS: Uric Acid 5.2 mg/dl (2.5-6.2)
[2024-09-24 15:27] LABS: Bacteria,Urine 1+ /lpf; RBC,Urine Occasional #/hpf (0-3)
--- NOTE | 2024-09-24 15:51 | PC.NURSE ---
Discharged with instructions. Verbalized understanding. Left unit ambulatory with sig other and .
== END 2024-09-24 15:55 | disposition home or self-care (01) ==
LOC: OBOUT 13:44 → OB 13:46
PROVIDERS: Obstetrics & Gynecology; PCP Nurse Practitioner Obstetrics & Gynecology; Visit Provider Nurse Practitioner Obstetrics & Gynecology
DX: O13.5 Gestational [pregnancy-induced] hypertension without significant proteinuria, complicating the puerperium (principal)
CPT/HCPCS: 80053; 81001; 82570; 84156; 84550; 85025; 85384; 85610; 85730

== ENCOUNTER 2025-03-12 11:16 | Outpatient (CLI) | payer BC, OTHER, SELFPAY ==
--- NOTE | 2025-03-12 11:27 | XR_ITS ---
FINAL REPORT CLINICAL HISTORY: Neck/Right UU injury COMPARISON: None FINDINGS: 2 views of the right elbow were obtained. There is no acute fracture or dislocation. The joint spaces are intact. The soft tissues are unremarkable. IMPRESSION: No acute osseous abnormality of the right elbow. Reviewed, Interpreted and Dictated by Renée Tucker MD Transcribed by Delfina Montoya Authenticated and [facility][1]
--- NOTE | 2025-03-12 11:27 | XR_ITS ---
FINAL REPORT CLINICAL HISTORY: Neck/Right UE injury COMPARISON: None FINDINGS: AP, lateral and odontoid views of the cervical spine were obtained. There is no prior exam for comparison. There is no acute fracture or malalignment. Vertebral body height is preserved. The precervical soft tissues are normal. IMPRESSION: No acute osseous abnormality of the cervical spine. Reviewed, Interpreted and Dictated by Renée Tucker MD Transcribed by Delfina Montoya Authenticated and [facility]
--- NOTE | 2025-03-12 11:27 | XR_ITS ---
FINAL REPORT CLINICAL HISTORY: Neck/Right UE injury COMPARISON: None FINDINGS: 3 views of the right shoulder were obtained. There is no fracture or dislocation. Mild acromioclavicular degenerative narrowing is present. Soft tissues are unremarkable. IMPRESSION: Mild degenerative change, with no acute osseous abnormality of the right shoulder. Reviewed, Interpreted and Dictated by Renée Tucker MD Transcribed by Delfina Montoya Authenticated and [facility]
== END 2025-03-12 23:59 | disposition home or self-care (01) ==
LOC: RAD 11:17
PROVIDERS: PCP Nurse Practitioner Family; Visit Provider Internal Medicine
DX: M19.011 Primary osteoarthritis, right shoulder (principal); M54.2 Cervicalgia; S46.009A Unspecified injury of muscle(s) and tendon(s) of the rotator cuff of unspecified shoulder, initial encounter
CPT/HCPCS: 72040; 73030; 73070

== ENCOUNTER 2025-04-19 09:24 | Outpatient (CLI) | payer BC, OTHER, SELFPAY ==
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
--- NOTE | 2025-04-19 09:45 | MR_ITS ---
FINAL REPORT CLINICAL HISTORY: Rotator cuff injury weakness and shoulder pain limited rom x 3 months COMPARISON: None FINDINGS: Multi planar MR imaging of the right shoulder was performed. The supraspinatus tendon appears intact. There is trace fluid in the subacromial-subdeltoid bursa. The anterior and posterior glenoid angie appear intact. The biceps tendon appears intact. There is moderate hypertrophic change of the acromioclavicular joint, with edema in the distal clavicle. There is mild soft tissue inflammatory reaction around the acromioclavicular joint. This may represent a contusion or be secondary to underlying ligamentous instability. IMPRESSION: Hypertrophic change and abnormal signal in the acromioclavicular joint as described, which may be secondary to a contusion or underlying ligamentous instability. No rotator cuff tendon or labral tear is identified. Reviewed, Interpreted and Dictated by Gaetano Torrez MD Transcribed by Delfina Montoya Authenticated and [facility]
[2025-04-19 16:42] LABS: Microscopic, Urine URINE MICROSCOPIC (MICROSCOPIC)
[2025-04-19 17:22] LABS: Hemoglobin A1C 5.2 % (4.0-6.0)
[2025-04-19 17:33] LABS: Alanine Aminotransferase 23 U/L (12-78); Albumin Level 4.4 g/dl (3.5-5.0); Albumin/Globulin Ratio 1.8 (1.1-1.8); Alkaline Phosphatase 128 U/L (38-126); Anion Gap 16.1 mEq/L (5-15); Aspartate Amino Transferase 25 U/L (14-36); Bilirubin,Total 0.3 mg/dl (0.2-1.3); Blood Urea Nitrogen 12 mg/dl (7-17); Calcium 9.3 mg/dl (8.4-10.2); Carbon Dioxide 26 mmol/L (22.0-30.0); Chloride 102 mmol/L (98-107); Creatinine,Serum 0.80 mg/dl (0.52-1.04); Estimated Glomerular Filt Rate 82 ml/min (>60); GFR (African American) 99 ML/MIN (>60); Globulin 2.5 g/dL (1.3-3.2); Glucose 101 mg/dl (74-100); Potassium 4.1 mmoL/L (3.5-5.1); Sodium 140 mmol/L (136-145); Total Protein,Serum 6.9 g/dl (6.3-8.2)
[2025-04-19 17:37] LABS: Bilirubin,Urine Negative (Negative); Color,Urine YELLOW (Yellow); Glucose,Urine (UA) Negative (Negative); Ketones,Urine Negative (Negative); Leukocyte Esterase,Urine Negative (Negative); PH,Urine 6.5 (5.0-8.5); Protein,Urine Negative (Negative); Specific Gravity, Urine 1.015 (1.005-1.030); Urobilinogen,Urine 0.2 EU/dl (0.2)
[2025-04-19 17:47] LABS: Free T4 (Free Thyroxine) 0.98 ng/dl (0.78-2.19); T4 (Thyroxine) 7.2 ug/dl (5.53-11.0)
[2025-04-19 18:00] LABS: Thyroid Stimulating Hormone 1.36 uIU/mL (0.465-4.68)
[2025-04-19 18:41] LABS: Bacteria,Urine 4+ /lpf; Squamous Epithelial Cell,Urine 20-50 #/hpf (0-5)
[2025-04-21 08:14] LABS: Triiodothyronine (T3) Free 2.8 pg/mL (2.0-4.4)
== END 2025-04-19 23:59 | disposition home or self-care (01) ==
LOC: RAD 09:25
PROVIDERS: PCP Nurse Practitioner Family; Visit Provider Internal Medicine
DX: M19.011 Primary osteoarthritis, right shoulder (principal); R93.6 Abnormal findings on diagnostic imaging of limbs; R30.0 Dysuria; R35.89 Other polyuria; N92.6 Irregular menstruation, unspecified; Z86.32 Personal history of gestational diabetes
CPT/HCPCS: 73221; 80053; 81001; 83036; 84436; 84439; 84443; 84481; 87086

== ENCOUNTER 2025-04-23 14:56 | Outpatient (RCR) | payer BC, OTHER, SELFPAY ==
--- NOTE | 2025-04-23 15:58 | HMH.PTOPEV ---
PT Evaluation Rehab PT Outpatient Evaluation Start: 04/23/25 15:02 Freq: Status: Active Protocol: Document 04/23/25 15:02 NOBLE (Rec: 04/23/25 15:58 NOBLE [id number]) E-signed By James Cook, PT Outpatient Therapy Subjective History Subjective History Pt is a 34 yof who is referred to [facility] outpatient PT with complaints of neck, shoulder and elbow pain. Pt reports that this pain has been ongoing for approximately 8 weeks and began after she was lifting her son. Pt reports that she has frequent numbness and tingling into her elbow and hands. Pt reports that she even has dropped things with her right hand due to the tingling. Pt reports that her symptoms are not localized to one portion of the hand but encompass the entire hand. Pt reports that her symptoms are significantly worsened with overhead activity, lifting, carrying her son, driving or reaching. Pt reports that her symptoms are constant but vary in severity. Pt reports that her job requires a significant amount of lifting, which has become increasingly more difficult. 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 Chief Complaint Pain,Stiff,Swelling,Paresthesia,Weakness Symptom Type Numbness,Tingling Symptoms Relieved By Nothing Symptoms Aggravated Lifting By Prior Functional None Limitations Current Functional Reaching,Lifting,Housework,Dressing,Desk Work/Reading, Limitations Driving Symptom Description Constant but Variable,Activity Dependent Level of pain today 3 (0-10) Pain scale - at its 3 best (0-10) Pain scale - at its 10 worst (0-10) Cervical Eval Palpation Cervical Muscles R Cervical Paraspinal,R CT Junction,R Upper Trapezius,R Thoracic Paraspinals Cervical/Thoracic Tenderness,Trigger Point Palpation Findings Posture Head/C-Spine Posture Neutral Position Sitting Position Head/C-Spine Posture Neutral Position Standing Position Flexibility Deficits Upper Trapezius (R) Moderate Tightness,(L) Moderate Tightness Muscle Length Pectoralis Major (R) Moderate Tightness,(L) Moderate Tightness Muscle Length Pectoralis Minor (R) Moderate Tightness,(L) Moderate Tightness Muscle Length AROM Cervical Spine 5 Extension Active Range of Motion ( degrees) Cervical Spine 45 Flexion Active Range of Motion (degrees) Cervical Spine Right 25 Lateral Flexion Active Range of Motion (degrees) Cervical Spine Left 10 Lateral Flexion Active Range of Motion (degrees) Cervical Spine Right 70 Rotation Active Range of Motion ( degrees) Cervical Spine Left 25 Rotation Active Range of Motion ( degrees) MMT Right Biceps Brachii 4+ Good+ Strength Grade Wrist Extension 3 Fair Strength Grade Triceps Brachii 5 Normal Strength Grade Wrist Flexion 5 Normal Strength Grade Extensor Pollicis 5 Normal Longus Strength Grade Finger Abduction 5 Normal Strength Grade DTR Rt Biceps 2+ Lt Biceps 2+ Rt Brachioradialis 2+ Lt Brachioradialis 2+ Rt Triceps 2+ Lt Triceps 2+ Altered Sensation Bilateral Upper extremity C5,C6,C7,C8,T1 Dermatomes Comment Non-specific hyposensation to light touch along R UE distal to elbow Special Test C-Spine Foraminal Negative Left,Positive Right Compression ( [place]) Test C-spine Verterbral Right P/A [place] Accessory Movements that Elicit Symptoms C-Spine Foraminal Positive Distraction Test C-Spine Compression Negative Left,Negative Right Test C-Spine Swallowing Negative Right Test Shoulder Abduction Negative Right Relief Test Shoulder Brachial Positive Right Plexus Stretch Test Neck Disability Index Neck Disability Index Section 1: Pain The pain is very mild at moment Intensity Section 2: Personal It is painful to look after myself and I am slow and Care (washing, careful dressing, etc.) Section 3: Lifting Pain prevents me from lifting heavy weights, but I can manage light to Section 4: Reading I can read as much as I want to with slight pain in my neck Section 5: Headaches I have moderate headaches, which come infrequently Section 6: I have a fair degree of difficulty in concentrating Concentration when I want to Section 7: Work I can do most of my usual work, but no more Section 8: Driving I can drive my car as long as I want with moderate pain in my neck Section 9: Sleeping My sleep is greatly disturbed (3-5 hrs sleepless) Section 10: I am able to engage in a few of my usual recreation Recreation activities because NDI Score 22 Miscellaneous Dx PT Eval Objective Objective R Rhomboid Strength: 3/5 Outpatient Therapy Assessment Impairments Problems/ Palpation Tenderness,Impaired Range of Motion,Impaired Impairmments Strength,Impaired Lifting,Impaired Work Activities, Subjective C/O Pain,Impaired Self Care/Self Management Prognosis Rehab Potential Good Comment w HEP compliance Clinical Impression Consistent with Yes Diagnosis Consistent with Cervical Radiculopathy Additional details: Pt's signs and symptoms are also consistent with thoracic outlet syndrome. Skilled PT is indicated for this pt to address her impairments and promote a return to her PLOF. PT Patient Goals PT Patient Goals PT Short Term In 4 weeks: Patient Goals 1. Patient will report a 48 hour average pain of 5/10 on the numeric pain rating scale to demonstrate improvement in quality of life and increased functional capacity. 2. Patient will improve R shoulder abduction and rhomboid strength upon manual muscle testing to 4/5 facilitate increased spinal stabilization, cervical support and improved functional capabilities. 3. Patient will demonstrate a reduction in trigger point sensitivity to Grade 2 with manual palpation to improve comfort during activity and soft tissue mobility. 4. Patient will improve cervical ROM by 5-10 degrees without pain into extension, LLF and L rotation to demonstrate improved movement patterns with functional mobility and ADLs. 5. Pt will demonstrate HEP compliance by completing prescribed HEP 4-5x/week. 6. Pt will improve NDI score to 18 to demonstrate improvement functional capabilities and improved QOL. PT Retirement Patient In 8 weeks: Goals 1. Patient will report a 48 hour average pain of 2-3/10 on the numeric pain rating scale to demonstrate improvement in quality of life and increased functional capacity. 2. Patient will improve shoulder abduction and rhomboid strength upon manual muscle testing to 4+/5 facilitate increased spinal stabilization and improved functional capabilities. 3. Patient will demonstrate a reduction in trigger point sensitivity to Grade 0-1 with manual palpation to improve comfort during activity and soft tissue mobility. 4. Patient will improve cervical ROM by 15-20 degrees, without pain, into extension, LLF and L rot to demonstrate improved movement patterns with functional mobility and ADLs. 5. Pt will improve NDI score to 14 to demonstrate improvement functional capabilities and improved QOL. 6. Pt will demonstrate less than 2/10 pain with the median N brachial plexus stretch in order to demonstrate decreased nerve sensitivity. Outpatient Therapy Plan of Care Treatment Plan May Include Therapeutic Exercise Yes Including Home Exercise Program Manual Therapy Yes Techniques Neuromuscular Re- Yes education Therapeutic Yes Activities to Return to Previous Functional/Work Level Gait Training Yes ADL/Self Care Yes Education Mechanical Traction Yes Thermal Modalities Yes Electrical Yes Stimulation Massage Yes Manual Lymphatic Yes Drainage Eval/Re-Eval Yes Frequency Times per week 2 Duration Number of Weeks 8 Addendums This patient is a No candidate for social or vocational rehab ? Patient/Guardian Yes verbally acknowledges understanding of treatment program and consents to further treatment? Patient/Guardian Yes verbally acknowledges understanding of diagnosis, prognosis and goals for treatment? Eval Complexity PT Charges 72705 - Moderate Complexity Shoulder/Elbow Eval Shoulder Objective Measurements Elbow Objective Measurements PHYSICIAN CERTIFICATION: I certify the specified therapy services for Sofia Moralez are required, authorized, and reviewed every 30 days.
== END 2025-04-23 23:59 | disposition home or self-care (01) ==
LOC: PT 14:56
PROVIDERS: Visit Provider Internal Medicine
DX: M54.2 Cervicalgia (principal); M25.519 Pain in unspecified shoulder; M25.529 Pain in unspecified elbow
CPT/HCPCS: 97162